=== PATIENT | male | born 1955 | race Caucasian/White ===

== ENCOUNTER 2024-09-05 20:42 | Observation (INO) ==
--- NOTE | 2024-09-05 22:30 | CT ---
EXAM:BRAIN W/O CONHISTORY:FALL; EMS states he fell this morning and was found later by neighbors. He cc of rib pain bilateral and rt ankle painCOMPARISON:Report only from December 25, 2021TECHNIQUE:Axial non-contrast images of the head were obtained with coronal and sagittal reformats provided.Radiation dose: 935.94 mGy-cm total DLPFINDINGS:No abnormal areas of acute attenuation in the brain parenchyma.Restrepo-white differentiation remains intact.No intracranial, extra-axial, fluid collection.No hemorrhage.Periventricular chronic microvascular disease.No mass, mass effect or midline shift.Age related brain parenchymal global atrophy.No ventriculomegaly.No acute fracture.Sinuses are well aerated.Mastoid air cells are well aerated.Globes and intra-orbital contents are unremarkable.IMPRESSION:No acute intracranial abnormality identified.THIS IS AN ELECTRONICALLY VERIFIED FINAL [id number]/05/2024 10:27 PM - Electronically signed by Jared Akhtar MD
--- NOTE | 2024-09-05 22:36 | CT ---
EXAM:CHEST W/O CONHISTORY:FALL; EMS states he fell this morning and was found later by neighbors. He cc of rib pain bilateral and rt ankle painCOMPARISON:None.TECHNIQUE:Nonenhance d spiral CT imaging was performed through the chest and axial, coronal, and sagittal CT images were generated.FINDINGS:There is atherosclerosis in the left main, lad, circumflex, and RCA. Main pulmonary artery is normal in caliber. Ascending aorta is ectatic at 3.5 cm. There is no pathologic adenopathy. There is some mucus in the airways. The lungs are grossly clear without effusion or pneumothorax. The upper abdominal structures are unremarkable. There are age-indeterminate compression fractures at T8, T10, and T11. There is degeneration in both shoulders and in the thoracic spine. No acute rib fracture is identified. There are some older healed right-sided rib fractures.IMPRESSION:1. Age-indeterminate T8, T10, T11 compression fractures.2. Mucus in the airways but lungs grossly clear.THIS IS AN ELECTRONICALLY VERIFIED FINAL [id number]/05/2024 10:33 PM - Electronically signed by Contreras Gaxiola MD
--- NOTE | 2024-09-05 23:45 | RAD ---
EXAM:FOOT, RIGHTHISTORY:EMS states he fell this morning and was found later by neighbors. He cc of rib pain bilateral and rt ankle pain; FALLCOMPARISON:None availableTECHNIQUE:Right foot radiographs, 3 views, AP, oblique and lateral projectionsFINDINGS:No fracture or dislocations.Moderate degenerative changes in the intertarsal bones of the midfoot.Soft tissues are unremarkable.Moderate partially unattached plantar calcaneal spur.IMPRESSION:No acute osseous abnormality.THIS IS AN ELECTRONICALLY VERIFIED FINAL [id number]/05/2024 11:42 PM - Electronically signed by Jared Akhtar MD
--- NOTE | 2024-09-05 23:46 | RAD ---
EXAM:ANKLE, RIGHTHISTORY:EMS states he fell this morning and was found later by neighbors. He cc of rib pain bilateral and rt ankle pain; FALLCOMPARISON:No relevant prior studies available.TECHNIQUE:Right ankle radiographs, 3 views, AP, oblique and lateral projectionsFINDINGS:No fracture or dislocations.Moderate degenerative changes in the intertarsal bones in the midfoot.Partially detached moderate plantar calcaneal spurring.Diffuse soft tissue edema.Normal tibiofibular interval.IMPRESSION:No acute osseous abnormality.THIS IS AN ELECTRONICALLY VERIFIED FINAL [id number]/05/2024 11:43 PM - Electronically signed by Jared Akhtar MD
[2024-09-06] MEDS: DUONEB 0.5 MG/3 MG (3 mL) NEB ONE (01:52)
[2024-09-06 02:08] LABS: BASOPHILS # (AUTO) 0.2 X10^3/uL (0.0-0.1); BASOPHILS % (AUTO) 1.1 % (0.2-1.0); EOSINOPHILS # (AUTO) 0.1 x10^3/uL (0.0-0.2); EOSINOPHILS % (AUTO) 0.8 % (0.9-2.9); HEMATOCRIT 40.1 % (42.0-54.0); HEMOGLOBIN 13.6 g/dL (13.5-18.0); LYMPHOCYTES # (AUTO) 2.1 X10^3/uL (1.3-2.9); LYMPHOCYTES % (AUTO) 12.9 % (21.0-51.0); MEAN CORPUSCULAR HEMOGLOBIN 30.3 pg (27.0-34.0); MEAN CORPUSCULAR HGB CONC 33.8 g/dL (33.0-35.0); MEAN CORPUSCULAR VOLUME 89.8 fL (80.0-100.0); MEAN PLATELET VOLUME 7.4 fL (7.4-11.0); MONOCYTES # (AUTO) 1.8 x10^3/uL (0.3-0.8); MONOCYTES % (AUTO) 11.5 % (0.0-13.0); NEUTROPHILS # (AUTO) 11.8 x10^3/uL (2.2-4.8); NEUTROPHILS % (AUTO) 73.7 % (42.0-75.0); PLATELET COUNT 244 X10^3/uL (150.0-450.0); RED BLOOD COUNT 4.47 X10^6/uL (4.7-6.0); RED CELL DISTRIBUTION WIDTH 15.6 % (11.6-16.5)
[2024-09-06 02:20] LABS: ALANINE AMINOTRANSFERASE 12 Units/L (12-78); ALBUMIN 2.6 g/dL (3.4-5.0); ALKALINE PHOSPHATASE 66 Units/L (46-116); ASPARTATE AMINO TRANSFERASE 19 Units/L (15-37); BLOOD UREA NITROGEN 25 mg/dL (7-18); CALCIUM 8.8 mg/dL (8.5-10.1); CARBON DIOXIDE 26.9 mmol/L (21-32); CHLORIDE 93 mmol/L (98-107); COR CA(FOR HYPOALB) 9.9 mg/dL (8.5-10.1); CREATINE KINASE 253 Units/L (39-308); GLUCOSE 62 mg/dL (65-99); LIPASE 14 Units/L (16-77); SODIUM 132 mmol/L (136-145); TOTAL PROTEIN 6.6 g/dL (6.4-8.2); eGFR NON BLACK RACES 29 (>60)
--- NOTE | 2024-09-06 02:50 | DR.EXTPAIN ---
HPI Time seen Time Seen by Provider: 09/05/24 21:42 HPI Comment HPI Comment: According to pt they were called by the neighbours early this evening after patient did not answer when they called .pt was found on the floor with face down .not knowing how long he had been there .Pt complained of pain over the ribs ,right ankle and foot .Pt was given dilaudid by EMS due to pain and brought to ER for evaluation Complaint/Symptoms Chief Complaint Doctor Comments: found on the floor Chief Complaint:: EMS states he fell this morning and was found later by neighbors. He cc of rib pain bilateral and rt ankle pain. COVID-19 Coronavirus risk:travel/contact w/high risk person: No Has patient experienced Coronavirus symptoms: No Nurses notes reviewed Nurses Notes Review: Yes Source History Provided: Patient and EMS Mode of arrival Mode of Arrival: EMS Timing Onset of Chief Complaint: 09/05/24 Context History of: Arthritis PMH PMH Past Medical History: Yes Past Medical History: COPD and Hypertension Past Surgical History: Yes Surgical History: Tonsillectomy and Other Family History History of Family Medical Conditions: Yes Family Medical History: Diabetes Mellitus, [place], Coronary Artery Disease and Hypertension Social History Alcohol Use: None Do you use any recreational Drugs:: No Lives With: Alone Lives Where: Home Travel Risk Coronavirus risk:travel/contact w/high risk person: No Has patient experienced Coronavirus symptoms: No Infectious screening In the last 2 months have you had wt loss of >10#?: NO Have you had fever, night sweats or hemotysis?: No Have you traveled outside the country in the last 6 months?: No Isolation: Standard ROS Review of Systems Constitutional: Malaise and Fatigue Eyes: No Symptoms Reported ENTM: No Symptoms Reported Respiratoy: Non-Productive Cough and Short of Breath Cardiovascular: No Symptoms Reported Gastrointestinal/Abdominal: No Symptoms Reported Genitourinary: No Symptoms Reported Neurological: No Symptoms Reported Musculoskeletal: See HPI Integumentary: No Symptoms Reported Hematologic/Lymphatic: No Symptoms Reported Endocrine: No Symptoms Reported PE Vital Signs Vitals: Vital Signs Temperature 99.4 F Pulse Rate [Left Radial] 100 Pulse Rate [Left Radial] 102 Pulse Rate 102 Pulse Rate 124 Respiratory Rate 20 Respiratory Rate 20 Respiratory Rate 18 Blood Pressure [Left Arm] 109/58 Blood Pressure [Left Arm] 122/59 Blood Pressure 111/64 O2 Sat by Pulse Oximetry 95 O2 Sat by Pulse Oximetry 98 O2 Sat by Pulse Oximetry 97 O2 Sat by Pulse Oximetry 80 General Limitations: No Limitations General Appearance: Alert and Lethargic Head Head Exam: Normal Inspection, Atraumatic, Normocephalic and Other (dry scaly and erythematous nasolabial folds as well as eyebrows ) ENT ENT Exam: Normal Exam and Mucous Membranes Dry Neck Neck Exam: Normal Inspection and Full ROM Chest Chest Inspection: Normal Inspection and Symmetric Chest Wall Rise Respiratory Respiratory Exam: Prolonged Expiratory Phase Cardiovascular Cardiovascular Exam: +S1 and +S2 Abdominal Exam Abdominal Exam: Normal Bowel Sounds, Soft, Tenderness and Hernia (over the parumbilical area ) Extremities Extremities Exam: Other (dry skin right ankle and foot painful to touch ) Neurological Neurological Exam: Other (arousable ) Skin Skin Exam: Dry MDM Differential Diagnosis Differential Diagnosis: Other (fall ,head injury rib pain ,right ankle and foot pain ,paraumbilical hernia painful,dyponea ,copd ,dehydrated ) COURSE Treatment Treatment: CT head ,ct chest ,labs ,ct abdomen and pelvis ,ddimer ROR Labs Reviewed Laboratory Results Reviewed?: Yes 09/06/24 01:50 09/06/24 01:50 Laboratory: WBC 16.0 X10^3/uL (3.6-10.0) H 09/06/24 01:50 RBC 4.47 X10^6/uL (4.7-6.0) L 09/06/24 01:50 Hgb 13.6 g/dL (13.5-18.0) 09/06/24 01:50 Hct 40.1 % (42.0-54.0) L 09/06/24 01:50 MCV 89.8 fL (80.0-100.0) 09/06/24 01:50 MCH 30.3 pg (27.0-34.0) 09/06/24 01:50 MCHC 33.8 g/dL (33.0-35.0) 09/06/24 01:50 RDW 15.6 % (11.6-16.5) 09/06/24 01:50 Plt Count 244 X10^3/uL (150.0-450.0) 09/06/24 01:50 MPV 7.4 fL (7.4-11.0) 09/06/24 01:50 Neut % (Auto) 73.7 % (42.0-75.0) 09/06/24 01:50 Lymph % (Auto) 12.9 % (21.0-51.0) L 09/06/24 01:50 [place] % (Auto) 11.5 % (0.0-13.0) 09/06/24 01:50 Eos % (Auto) 0.8 % (0.9-2.9) L 09/06/24 01:50 Baso % (Auto) 1.1 % (0.2-1.0) H 09/06/24 01:50 Neut # (Auto) 11.8 x10^3/uL (2.2-4.8) H 09/06/24 01:50 Lymph # (Auto) 2.1 X10^3/uL (1.3-2.9) 09/06/24 01:50 [place] # (Auto) 1.8 x10^3/uL (0.3-0.8) H 09/06/24 01:50 Eos # (Auto) 0.1 x10^3/uL (0.0-0.2) 09/06/24 01:50 Baso # (Auto) 0.2 X10^3/uL (0.0-0.1) H 09/06/24 01:50 Absolute Nucleated RBC 0.1 /100WBC 09/06/24 01:50 D-Dimer 1.64 ug/ml (0.0-0.57) H 09/06/24 01:50 Sodium 132 mmol/L (136-145) L 09/06/24 01:50 Corrected Sodium TNP 09/06/24 01:50 Potassium 4.0 mmol/L (3.5-5.1) 09/06/24 01:50 Chloride 93 mmol/L (98-107) L 09/06/24 01:50 Carbon Dioxide 26.9 mmol/L (21-32) 09/06/24 01:50 BUN 25 mg/dL (7-18) H 09/06/24 01:50 Creatinine 2.40 mg/dL (0.70-1.30) H 09/06/24 01:50 Est GFR (MDRD) Af Amer 35 (>60) L 09/06/24 01:50 Est GFR (MDRD) Non-Af 29 (>60) L 09/06/24 01:50 Glucose 62 mg/dL (65-99) L 09/06/24 01:50 Calcium 8.8 mg/dL (8.5-10.1) 09/06/24 01:50 Corrected Calcium 9.9 mg/dL (8.5-10.1) 09/06/24 01:50 Total Bilirubin 1.80 mg/dL (0.2-1.0) H 09/06/24 01:50 Direct Bilirubin 0.80 mg/dL (0-0.2) H 09/06/24 01:50 AST 19 Units/L (15-37) 09/06/24 01:50 ALT 12 Units/L (12-78) 09/06/24 01:50 Alkaline Phosphatase 66 Units/L (46-116) 09/06/24 01:50 Creatine Kinase 253 Units/L (39-308) 09/06/24 01:50 Total Protein 6.6 g/dL (6.4-8.2) 09/06/24 01:50 Albumin 2.6 g/dL (3.4-5.0) L 09/06/24 01:50 Globulin 4.0 g/dL (2.5-4.5) 09/06/24 01:50 Albumin/Globulin Ratio 0.7 Ratio (1.1-2.1) L 09/06/24 01:50 Lipase 14 Units/L (16-77) L 09/06/24 01:50 Opioid Opioid Risk Tool Age (Edwar box if 16-45): No History of Preadolescent Sexual Abuse: No Total: 0 Total Score Risk Category: Low Risk Copyright: Joseph ALVARENGA predicting aberrant behaviors Discharge Plan Diagnosis Discharge Problem: Acute renal failure, D-dimer, elevated, Hernia of anterior abdominal wall, Leukocytosis, Acute dehydration Discharge Plan Patient Disposition: HOME, SELF-CARE Condition: Stable Prescriptions: Continued albuterol sulfate 2.5 mg /3 mL (0.083 %) Solution For Nebulization 2.5 mg inhalation QID PRN (Reason: Shortness Of Breath) Discontinued furosemide 40 mg tablet 40 mg PO DAILY Patient Comments: Take ONE (1) Tablet by mouth ONE (1) Time Each Day 30-DAY SUPPLY hydrocodone-acetaminophen 7.5-325 mg tablet 7.5 tab PO BID Patient Comments: Take ONE (1) Tablet by mouth TWO (2) Times Each Day 30-DAY SUPPLY albuterol sulfate 90 mcg/actuation Hfa Aerosol Inhaler 2 puff INHALATION Q4H PRN (Reason: Shortness Of Breath) lisinopril 40 mg tablet 40 mg PO DAILY Patient Comments: Take ONE (1) Tablet by mouth ONE (1) Time Each Day 30-DAY SUPPLY celecoxib 200 mg capsule 200 mg PO BID prednisone 20 mg tablet 20 mg PO QDAY allopurinol 300 mg tablet 300 mg PO QDAY Health Concerns: Post Hospitalization: new medications and changes needed to prevent readmission or further decline. Pt educated and given instructions on all concerns. Plan of Treatment: Continue with present treatment and follow up plan. Pt is to keep follow up appointment as instructed and take medications as ordered. Orders to Discharge Patient Discharge Orders: Transfer (Routine); Ordered 09/06/24 Ordered By: Florentino Cooper Follow ups/Referrals Follow ups/Referrals: [facility],None [Primary Care Provider] - 3 days Instructions Stand Alone Forms: Post Hospital Follow Up Care ADDITIONAL NOTES Additional Notes Additional Notes: wbc 16,dimer elevated ,blood sugar 62,gfr 29,ct abdomen and pelvis anterior abdominal wall hernia containing omentum with inflammatory chnages .spoek with Dr Ware.Agreed to admit for acute renal failure,elevated dimer copd ,possible incarcerated hernia dehydration .spoke with surgery for consult
--- NOTE | 2024-09-06 03:37 | CT ---
CT ABDOMEN AND PELVIS WITHOUT CONTRASTHISTORY:RUQ PAIN, PERIUMBILICAL HERNIA;COMPARISON:NoneTECHNIQUE:Axial images were obtained of the abdomen and pelvis without IV contrast. Sagittal and coronal reformatted images were provided. All images were reviewed in a variety of windows and levels.RADIATION REDUCTION TECHNIQUE: Automated exposure control, adjustment of the mA or kV according to patient size, or iterative reconstruction techniques were used.FINDINGS:Please note that lack of IV contrast does limit evaluation of the soft tissues and vascular detail.The visualized lower lung zones are clear. The heart size is within normal limits. There is no evidence of a pericardial effusion.The liver, spleen, pancreas, adrenal glands, and kidneys are grossly unremarkable. The gallbladder is grossly unremarkable.Bilateral nonobstructing nephrolithiasis is noted. There is an anterior abdominal hernia containing omentum with inflammatory changes. This potentially could represent an incarcerated hernia. Please clinically correlate with symptoms. Surgical consultation may be obtained as clinically indicated. Mild fusiform prominence of the infrarenal abdominal aorta with calcification is seen measuring 27 mm in diameter.The stomach, small bowel, and colon are grossly unremarkable. A few scattered diverticula are seen without evidence of diverticulitis. There are no inflammatory changes in the right lower quadrant to suggest secondary signs of acute appendicitis. Partial visualization of the appendix is normal. The appendix is not seen in its entirety on this examination.There is no evidence of retroperitoneal or mesenteric lymphadenopathy.The visualized bones demonstrate degenerative changes. There are no concerning lytic or blastic lesions identified.IMPRESSION:1. There is an anterior abdominal hernia containing omentum with inflammatory changes. This potentially could represent an incarcerated hernia. Please clinically correlate with symptoms. Surgical consultation may be obtained as clinically indicated.2. Bilateral nonobstructing nephrolithiasis is noted.THIS IS AN ELECTRONICALLY VERIFIED FINAL [id number]/06/2024 3:34 AM - Electronically signed by Renny Schmitz MD
[2024-09-06] MEDS: NS 1,000 ML IV 1,000 ML IV ONE ×2 (04:45→10:02)
[2024-09-06 04:57] LABS: BILIRUBIN,URINE 1+ (NEGATIVE); BLOOD/HEMOGLOBIN,URINE 3+ (NEGATIVE); GLUCOSE, URINE NEGATIVE (NEGATIVE); KETONES,URINE 1+ (NEGATIVE); LEUKOCYTE ESTERASE ,URINE 1+ (NEGATIVE); NITRITES,URINE NEGATIVE (NEGATIVE); PROTEIN,URINE 2+ (NEGATIVE); UROBILINOGEN,URINE 2+ (NORMAL)
[2024-09-06] MEDS: DILAUDID INJ IVP ONE (04:57)
[2024-09-06 05:03] LABS: APPEARANCE,URINE CLEAR (CLEAR); COLOR,URINE AMBER (YELLOW)
[2024-09-06 05:04] LABS: BACTERIA,URINE TRACE /HPF (NEGATIVE); HYALINE CASTS, URINE FEW /LPF (NEGATIVE); SQUAMOUS EPITHELIAL CELL,UR RARE /HPF (NEGATIVE)
[2024-09-06 05:20] LABS: ALANINE AMINOTRANSFERASE 10 Units/L (12-78); ALBUMIN 2.7 g/dL (3.4-5.0); ALKALINE PHOSPHATASE 69 Units/L (46-116); ASPARTATE AMINO TRANSFERASE 20 Units/L (15-37); BLOOD UREA NITROGEN 26 mg/dL (7-18); CALCIUM 8.8 mg/dL (8.5-10.1); CARBON DIOXIDE 25.9 mmol/L (21-32); CHLORIDE 92 mmol/L (98-107); COR CA(FOR HYPOALB) 9.8 mg/dL (8.5-10.1); CREATININE 2.31 mg/dL (0.70-1.30); GLUCOSE 70 mg/dL (65-99); POTASSIUM 4.1 mmol/L (3.5-5.1); SODIUM 132 mmol/L (136-145); TOTAL PROTEIN 6.8 g/dL (6.4-8.2); eGFR NON BLACK RACES 30 (>60)
[2024-09-06] MEDS ORDERED: PROVENTIL NEB TX 0.083% 2.5MG/ 3ML NEB PRN ×2 (05:20→05:25)
[2024-09-06] MEDS: LOVENOX INJ 30 MG SYR SC SCH (08:16)
[2024-09-06] MEDS: DILAUDID INJ ONE (10:02)
--- NOTE | 2024-09-06 11:15 | DR.H&P ---
H&P History & Physical for Day of: H&P Date: 09/06/24 Chief Complaint Chief Complaint: fall History of Present Illness History of Present Illness: Mr Dao is a 68y/o male with a PMH of COPD, HTN presented after being on the floor for an unknown time. He was found by his neighbors on the floor with face down. Patient complained of rib pain and was brought to the ER for further evaluation. ER work up showed elevated WBC and BUN/Cr. CT-brain was negative. CTAP showed abdominal hernia with possible incarceration. CT-chest showed mucus plugging along with age-indeterminate T8, T10, T11 compression fractures. Patient's d-dimer was elevated but CTA-chest could not be done due to poor renal function. Patient was started on hydration and pain control. He was admitted for further management. Dr Mcpherson was also consulted for abdominal hernia. During rounds, patient states his knees had been bothering him for a while and his right knee gave out and he fell on the floor. He is cough and wheezing on exam. He is not able to tell which medicines he takes. He is asking for water. He denied N/V/D or abdominal pain. Labs/imaging reviewed: -WBC 16 Hgb 13.6 Na:132 K 4.1 BUN/Cr 26/2.31 D-dimer 1.64 -UA neg -CT-brain, chest and XR reviewed Plan: will admit to med-surg. Wean O2 as tolerated. Continue hydration, replace electrolytes as per protocol. Venous US ordered. Will start Cefepime and solumedrol. Nebs prn. Continue pain control. Follow surgery recommendations. PT/OT as tolerated. Monitor AM labs/imaging. Time spent for clinical assessment, reviewing labs/imaging, physical exam, documentation and decision making greater than 45 mins. Past Medical History Past Medical History: COPD and Hypertension Past Surgical History Surgical History: Abdominal Surgery and Other Family History Family Medical History: Diabetes Mellitus, [place], Coronary Artery Disease and Hypertension Social History Does patient currently use any type of tobacco product: Yes Type of Tobacco Use: Cigarettes How many years tobacco product used: 60 Alcohol Use: Occasionally Drug Use: None Medications Home Medications: Home Medications Medication Instructions Recorded Confirmed Type albuterol sulfate 2.5 mg/3 mL 2.5 mg inhalation QID PRN 11/02/19 09/05/24 History (0.083 %) solution for nebulization Shortness Of Breath Allergies Allergies Allergy/AdvReac Type Severity Reaction Status Date / Time Penicillins Allergy Verified 09/05/24 23:25 Labs 09/06/24 01:50 09/06/24 05:00 Labs: Laboratory WBC 16.0 X10^3/uL (3.6-10.0) H 09/06/24 01:50 RBC 4.47 X10^6/uL (4.7-6.0) L 09/06/24 01:50 Hgb 13.6 g/dL (13.5-18.0) 09/06/24 01:50 Hct 40.1 % (42.0-54.0) L 09/06/24 01:50 MCV 89.8 fL (80.0-100.0) 09/06/24 01:50 MCH 30.3 pg (27.0-34.0) 09/06/24 01:50 MCHC 33.8 g/dL (33.0-35.0) 09/06/24 01:50 RDW 15.6 % (11.6-16.5) 09/06/24 01:50 Plt Count 244 X10^3/uL (150.0-450.0) 09/06/24 01:50 MPV 7.4 fL (7.4-11.0) 09/06/24 01:50 Neut % (Auto) 73.7 % (42.0-75.0) 09/06/24 01:50 Lymph % (Auto) 12.9 % (21.0-51.0) L 09/06/24 01:50 [place] % (Auto) 11.5 % (0.0-13.0) 09/06/24 01:50 Eos % (Auto) 0.8 % (0.9-2.9) L 09/06/24 01:50 Baso % (Auto) 1.1 % (0.2-1.0) H 09/06/24 01:50 Neut # (Auto) 11.8 x10^3/uL (2.2-4.8) H 09/06/24 01:50 Lymph # (Auto) 2.1 X10^3/uL (1.3-2.9) 09/06/24 01:50 [place] # (Auto) 1.8 x10^3/uL (0.3-0.8) H 09/06/24 01:50 Eos # (Auto) 0.1 x10^3/uL (0.0-0.2) 09/06/24 01:50 Baso # (Auto) 0.2 X10^3/uL (0.0-0.1) H 09/06/24 01:50 Absolute Nucleated RBC 0.1 /100WBC 09/06/24 01:50 D-Dimer 1.64 ug/ml (0.0-0.57) H 09/06/24 01:50 Sodium 132 mmol/L (136-145) L 09/06/24 05:00 Corrected Sodium TNP 09/06/24 05:00 Potassium 4.1 mmol/L (3.5-5.1) 09/06/24 05:00 Chloride 92 mmol/L (98-107) L 09/06/24 05:00 Carbon Dioxide 25.9 mmol/L (21-32) 09/06/24 05:00 BUN 26 mg/dL (7-18) H 09/06/24 05:00 Creatinine 2.31 mg/dL (0.70-1.30) H 09/06/24 05:00 Est GFR (MDRD) Af Amer 36 (>60) L 09/06/24 05:00 Est GFR (MDRD) Non-Af 30 (>60) L 09/06/24 05:00 Glucose 70 mg/dL (65-99) 09/06/24 05:00 Calcium 8.8 mg/dL (8.5-10.1) 09/06/24 05:00 Corrected Calcium 9.8 mg/dL (8.5-10.1) 09/06/24 05:00 Total Bilirubin 2.10 mg/dL (0.2-1.0) H 09/06/24 05:00 Direct Bilirubin 0.80 mg/dL (0-0.2) H 09/06/24 01:50 AST 20 Units/L (15-37) 09/06/24 05:00 ALT 10 Units/L (12-78) L 09/06/24 05:00 Alkaline Phosphatase 69 Units/L (46-116) 09/06/24 05:00 Creatine Kinase 253 Units/L (39-308) 09/06/24 01:50 Total Protein 6.8 g/dL (6.4-8.2) 09/06/24 05:00 Albumin 2.7 g/dL (3.4-5.0) L 09/06/24 05:00 Globulin 4.1 g/dL (2.5-4.5) 09/06/24 05:00 Albumin/Globulin Ratio 0.7 Ratio (1.1-2.1) L 09/06/24 05:00 Lipase 14 Units/L (16-77) L 09/06/24 01:50 Specimen Type Catherized urine 09/06/24 04:30 Urine Color Eliz (YELLOW) 09/06/24 04:30 Urine Appearance Clear (CLEAR) 09/06/24 04:30 Urine pH 6.0 (5.0 - 8.0) 09/06/24 04:30 Ur Specific [place] 1.025 (1.000-1.030) 09/06/24 04:30 Urine Protein 2+ (NEGATIVE) 09/06/24 04:30 Urine Glucose (UA) Negative (NEGATIVE) 09/06/24 04:30 Urine Ketones 1+ (NEGATIVE) 09/06/24 04:30 Urine Blood 3+ (NEGATIVE) 09/06/24 04:30 Urine Nitrite Negative (NEGATIVE) 09/06/24 04:30 Urine Bilirubin 1+ (NEGATIVE) 09/06/24 04:30 Urine Urobilinogen 2+ (NORMAL) 09/06/24 04:30 Ur Leukocyte Esterase 1+ (NEGATIVE) 09/06/24 04:30 Urine RBC 3-5 /HPF (0-3) A 09/06/24 04:30 Urine WBC 0-2 /HPF (0-5) 09/06/24 04:30 Ur Squamous Epith Cells Rare /HPF (NEGATIVE) 09/06/24 04:30 Urine Bacteria Trace /HPF (NEGATIVE) 09/06/24 04:30 Hyaline Casts Few /LPF (NEGATIVE) 09/06/24 04:30 Ur Culture Indicated? No/not indicated 09/06/24 04:30 Review of Systems Constitutional: Weakness Eyes: No Symptoms Reported ENT: No Symptoms Reported Respiratory: Cough, Shortness of Breath and Wheezing Cardiovascular: No Symptoms Reported Gastrointestinal: No Symptoms Reported Genitourinary: Incontinence Musculoskeletal: Other (rib pain) Skin: No Symptoms Reported Neurological: No Symptoms Reported Physical Exam Vital Signs: Vital Signs Temperature 97.4 F Temperature 98.3 F Pulse Rate [Left Radial] 97 Pulse Rate [Left Radial] 98 Pulse Rate [Left Radial] 100 Pulse Rate [Left Radial] 102 Respiratory Rate 19 Respiratory Rate 20 Respiratory Rate 20 Respiratory Rate 20 Respiratory Rate 20 Blood Pressure [Right Arm] 119/59 Blood Pressure [Right Arm] 98/67 Blood Pressure [Left Arm] 109/58 Blood Pressure [Left Arm] 122/59 O2 Sat by Pulse Oximetry 98 O2 Sat by Pulse Oximetry 95 O2 Sat by Pulse Oximetry 98 Oriented: Normal Throat: Dry Respiratory: Rhonchi Throughout and Wheezes Throughout Cardiovascular: Edema Auscultation: Bowel Sounds: Normal Palpation: Normal Tenderness: Normal and Other (abdominal hernia noted, non-tender ) Skin: Decreased Turgur Musculoskeletal: Leg and Back:Thoracic Psychiatric: Anxiety Mood Description: Anxious Affect: Normal Speech Pattern: Clear and Appropriate Assessment/Plan (1) COPD exacerbation: Status: Acute (2) Acute renal failure: Qualifiers: Acute renal failure type: unspecified Qualified Code(s): N17.9 - Acute kidney failure, unspecified Status: Acute (3) D-dimer, elevated: Status: Acute (4) Hernia of anterior abdominal wall: Status: Acute (5) Acute dehydration: Status: Acute (6) Thoracic compression fracture: Qualifiers: Thoracic vertebra fracture level: T8 Fracture healing: with routine healing Encounter type: subsequent encounter Qualified Code(s): S22.060D - Wedge compression fracture of T7-T8 vertebra, subsequent encounter for fracture with routine healing Status: Acute Review H&P Reviewed: Yes Patient was examined?: Yes
[2024-09-06] MEDS: SOLU-Medrol 40 MG VIAL IVP SCH (11:32)
[2024-09-06] MEDS: MAXIPIME VIAL 1 GRAM 1 G in NS 50 ML IV 50 ML IV SCH (11:32)
[2024-09-06] MEDS: NS 1,000 ML IV 1,000 ML IV SCH (11:32)
[2024-09-06] MEDS: DILAUDID INJ IVP PRN (12:01)
--- NOTE | 2024-09-06 15:20 | DR.CONSULT ---
CONSULT Consultation for Day of: Date: 09/06/24 Chief Complaint Chief Complaint: Patient found at his home on the floor. He had fallen and could not get up. Denies loss of consciousness. Unsure how long he was down. Presents with rib pain and evaluated the emergency room. CT scans of everything showed normal head CT normal chest CT, he does have incarcerated aubrey-umbilical hernia with just fat involved. I was consulted to evaluate the hernia. He is awake and alert. Allergies Allergies Allergy/AdvReac Type Severity Reaction Status Date / Time Penicillins Allergy Verified 09/05/24 23:25 History of Present Illness History of Present Illness: as above Past Medical History Past Medical History: COPD and Hypertension Past Surgical History Surgical History: Abdominal Surgery and Other Family History Family Medical History: Diabetes Mellitus, [place], Coronary Artery Disease and Hypertension Social History Does patient currently use any type of tobacco product: Yes Type of Tobacco Use: Cigarettes How many years tobacco product used: 60 Alcohol Use: Occasionally Drug Use: None Medications Home Medications: Penicillins Allergy (Verified 09/05/24 23:25) Review of Systems Constitutional: See HPI Eyes: No Symptoms Reported ENT: No Symptoms Reported Respiratory: No Symptoms Reported Cardiovascular: No Symptoms Reported Gastrointestinal: No Symptoms Reported Genitourinary: No Symptoms Reported Musculoskeletal: No Symptoms Reported Skin: Other (history of multiple skin cancers removed in the past.) Physical Exam Vital Signs: Vital Signs Temperature 98.3 F Temperature 97.4 F Temperature 98.3 F Pulse Rate [Left Radial] 92 Pulse Rate [Left Radial] 97 Pulse Rate [Left Radial] 98 Respiratory Rate 20 Respiratory Rate 18 Respiratory Rate 19 Respiratory Rate 20 Blood Pressure [Right Arm] 109/58 Blood Pressure [Right Arm] 119/59 Blood Pressure [Right Arm] 98/67 O2 Sat by Pulse Oximetry 98 O2 Sat by Pulse Oximetry 98 Oriented: Normal, Time, Person and Place Eyes: Normal Ear: Normal Nose: Normal Throat: Normal Respiratory: Clear Throughout Cardiovascular: Normal : Normal Palpation: Other (palpable , non -reduceable, non- tender supra-umbilical hernia ) Tenderness: Normal Skin: Other (crusting wound over nose ) Musculoskeletal: Normal (but generally weak) Psychiatric: Normal Mood Description: Calm and Anxious Affect: Anxious Speech Pattern: Clear Plan (1) COPD exacerbation: Status: Acute (2) Acute renal failure: Status: Acute Qualifiers: Acute renal failure type: unspecified Qualified Code(s): N17.9 - Acute kidney failure, unspecified (3) D-dimer, elevated: Status: Acute (4) Hernia of anterior abdominal wall: Status: Acute Plan: Chronic , will recommend elective repair after all current problems resolved (5) Acute dehydration: Status: Acute (6) Thoracic compression fracture: Status: Acute Qualifiers: Encounter type: subsequent encounter Thoracic vertebra fracture level: T8 Fracture healing: with routine healing Qualified Code(s): S22.060D - Wedge compression fracture of T7-T8 vertebra, subsequent encounter for fracture with routine healing
[2024-09-06] MEDS: PROVENTIL NEB TX 0.083% 2.5MG/ 3ML IN PRN (19:49)
[2024-09-07] MEDS: VISTARIL PO PRN (02:45)
--- NOTE | 2024-09-07 10:03 | PCM.PROG ---
Progress Note Progress Note for Day of Date of Exam: 09/07/24 Subjective Subjective: Patient seen at bedside, no acute events overnight. Patient is sitting up in the recliner. Daughter also present at bedside. She reports patient has a hx of COPD and CHF. He has been sick for the past week. He did refuse labs this morning. He is currently admitted for COPD exacerbation, fall and LE edema. He was also noted to have abdominal hernia, Dr Mcpherson saw the patient. No surgical intervention recommended at this time. Patient denies N/V/D or abdominal pain. Labs/imaging: -09/07/24 labs pending -Venous US pending Plan: follow pending lab results. Reconcile home medications. Continue IV Cefepime and solumedrol. Continue nebs prn. Will decrease fluids to 75cc/hr. Replace electrolytes as per protocol. Follow Venous US. Keep legs elevated. PT/OT as tolerated. Monitor AM labs/imaging. Past Medical Family Social History Allergies: Allergies Penicillins Allergy (Verified 09/05/24 23:25) Vital Signs and I&O's Vital Signs: Vital Signs Temperature 97.6 F Pulse Rate [Left Radial] 84 Respiratory Rate 21 Blood Pressure [Right Arm] 138/74 O2 Sat by Pulse Oximetry 97 Intake and Output: Intake & Output 09/04/24 09/05/24 09/06/24 09/07/24 23:59 23:59 23:59 23:59 Intake Total 1261 / 1261 1555 / 1555 Output Total 1060 / 1060 720 / 720 Balance 201 / 201 835 / 835 Physical Exam Oriented: Normal Eyes: Normal Ear: Normal Nose: Normal Throat: Normal Respiratory: Generalized, Wheezes and Rhonchi Cardiovascular: Normal and Edema Auscultation: Bowel Sounds: Normal Palpation: Normal Tenderness: Normal Skin: Other (crusting wound over nose ) Musculoskeletal: Normal (but generally weak) Psychiatric: Normal Mood Description: Calm Affect: Normal Speech Pattern: Clear and Appropriate Laboratory and Diagnostics 09/06/24 01:50 09/06/24 05:00 Labs: Laboratory WBC 16.0 X10^3/uL (3.6-10.0) H 09/06/24 01:50 RBC 4.47 X10^6/uL (4.7-6.0) L 09/06/24 01:50 Hgb 13.6 g/dL (13.5-18.0) 09/06/24 01:50 Hct 40.1 % (42.0-54.0) L 09/06/24 01:50 MCV 89.8 fL (80.0-100.0) 09/06/24 01:50 MCH 30.3 pg (27.0-34.0) 09/06/24 01:50 MCHC 33.8 g/dL (33.0-35.0) 09/06/24 01:50 RDW 15.6 % (11.6-16.5) 09/06/24 01:50 Plt Count 244 X10^3/uL (150.0-450.0) 09/06/24 01:50 MPV 7.4 fL (7.4-11.0) 09/06/24 01:50 Neut % (Auto) 73.7 % (42.0-75.0) 09/06/24 01:50 Lymph % (Auto) 12.9 % (21.0-51.0) L 09/06/24 01:50 [place] % (Auto) 11.5 % (0.0-13.0) 09/06/24 01:50 Eos % (Auto) 0.8 % (0.9-2.9) L 09/06/24 01:50 Baso % (Auto) 1.1 % (0.2-1.0) H 09/06/24 01:50 Neut # (Auto) 11.8 x10^3/uL (2.2-4.8) H 09/06/24 01:50 Lymph # (Auto) 2.1 X10^3/uL (1.3-2.9) 09/06/24 01:50 [place] # (Auto) 1.8 x10^3/uL (0.3-0.8) H 09/06/24 01:50 Eos # (Auto) 0.1 x10^3/uL (0.0-0.2) 09/06/24 01:50 Baso # (Auto) 0.2 X10^3/uL (0.0-0.1) H 09/06/24 01:50 Absolute Nucleated RBC 0.1 /100WBC 09/06/24 01:50 D-Dimer 1.64 ug/ml (0.0-0.57) H 09/06/24 01:50 Sodium 132 mmol/L (136-145) L 09/06/24 05:00 Corrected Sodium TNP 09/06/24 05:00 Potassium 4.1 mmol/L (3.5-5.1) 09/06/24 05:00 Chloride 92 mmol/L (98-107) L 09/06/24 05:00 Carbon Dioxide 25.9 mmol/L (21-32) 09/06/24 05:00 BUN 26 mg/dL (7-18) H 09/06/24 05:00 Creatinine 2.31 mg/dL (0.70-1.30) H 09/06/24 05:00 Est GFR (MDRD) Af Amer 36 (>60) L 09/06/24 05:00 Est GFR (MDRD) Non-Af 30 (>60) L 09/06/24 05:00 Glucose 70 mg/dL (65-99) 09/06/24 05:00 Calcium 8.8 mg/dL (8.5-10.1) 09/06/24 05:00 Corrected Calcium 9.8 mg/dL (8.5-10.1) 09/06/24 05:00 Total Bilirubin 2.10 mg/dL (0.2-1.0) H 09/06/24 05:00 Direct Bilirubin 0.80 mg/dL (0-0.2) H 09/06/24 01:50 AST 20 Units/L (15-37) 09/06/24 05:00 ALT 10 Units/L (12-78) L 09/06/24 05:00 Alkaline Phosphatase 69 Units/L (46-116) 09/06/24 05:00 Creatine Kinase 253 Units/L (39-308) 09/06/24 01:50 Total Protein 6.8 g/dL (6.4-8.2) 09/06/24 05:00 Albumin 2.7 g/dL (3.4-5.0) L 09/06/24 05:00 Globulin 4.1 g/dL (2.5-4.5) 09/06/24 05:00 Albumin/Globulin Ratio 0.7 Ratio (1.1-2.1) L 09/06/24 05:00 Lipase 14 Units/L (16-77) L 09/06/24 01:50 Specimen Type Catherized urine 09/06/24 04:30 Urine Color Eliz (YELLOW) 09/06/24 04:30 Urine Appearance Clear (CLEAR) 09/06/24 04:30 Urine pH 6.0 (5.0 - 8.0) 09/06/24 04:30 Ur Specific [place] 1.025 (1.000-1.030) 09/06/24 04:30 Urine Protein 2+ (NEGATIVE) 09/06/24 04:30 Urine Glucose (UA) Negative (NEGATIVE) 09/06/24 04:30 Urine Ketones 1+ (NEGATIVE) 09/06/24 04:30 Urine Blood 3+ (NEGATIVE) 09/06/24 04:30 Urine Nitrite Negative (NEGATIVE) 09/06/24 04:30 Urine Bilirubin 1+ (NEGATIVE) 09/06/24 04:30 Urine Urobilinogen 2+ (NORMAL) 09/06/24 04:30 Ur Leukocyte Esterase 1+ (NEGATIVE) 09/06/24 04:30 Urine RBC 3-5 /HPF (0-3) A 09/06/24 04:30 Urine WBC 0-2 /HPF (0-5) 09/06/24 04:30 Ur Squamous Epith Cells Rare /HPF (NEGATIVE) 09/06/24 04:30 Urine Bacteria Trace /HPF (NEGATIVE) 09/06/24 04:30 Hyaline Casts Few /LPF (NEGATIVE) 09/06/24 04:30 Ur Culture Indicated? No/not indicated 09/06/24 04:30 Plan (1) COPD exacerbation: Status: Acute (2) Acute renal failure: Status: Acute Qualifiers: Acute renal failure type: unspecified Qualified Code(s): N17.9 - Acute kidney failure, unspecified (3) D-dimer, elevated: Status: Acute (4) Hernia of anterior abdominal wall: Status: Acute (5) Acute dehydration: Status: Acute (6) Thoracic compression fracture: Status: Acute Qualifiers: Encounter type: subsequent encounter Fracture healing: with routine healing Thoracic vertebra fracture level: T8 Qualified Code(s): S22.060D - Wedge compression fracture of T7-T8 vertebra, subsequent encounter for fracture with routine healing
[2024-09-07 10:06] LABS: BASOPHILS # (AUTO) 0.3 X10^3/uL (0.0-0.1); BASOPHILS % (AUTO) 1.8 % (0.2-1.0); HEMATOCRIT 37.2 % (42.0-54.0); HEMOGLOBIN 12.6 g/dL (13.5-18.0); LYMPHOCYTES # (AUTO) 0.5 X10^3/uL (1.3-2.9); LYMPHOCYTES % (AUTO) 3.3 % (21.0-51.0); MEAN CORPUSCULAR HEMOGLOBIN 30.2 pg (27.0-34.0); MEAN CORPUSCULAR HGB CONC 33.9 g/dL (33.0-35.0); MEAN CORPUSCULAR VOLUME 88.9 fL (80.0-100.0); MEAN PLATELET VOLUME 8.1 fL (7.4-11.0); MONOCYTES # (AUTO) 0.6 x10^3/uL (0.3-0.8); MONOCYTES % (AUTO) 3.5 % (0.0-13.0); NEUTROPHILS # (AUTO) 14.3 x10^3/uL (2.2-4.8); NEUTROPHILS % (AUTO) 91.4 % (42.0-75.0); PLATELET COUNT 248 X10^3/uL (150.0-450.0); RED BLOOD COUNT 4.18 X10^6/uL (4.7-6.0); RED CELL DISTRIBUTION WIDTH 15.8 % (11.6-16.5); WHITE BLOOD COUNT 15.7 X10^3/uL (3.6-10.0)
[2024-09-07 10:19] LABS: ALANINE AMINOTRANSFERASE 18 Units/L (12-78); ALBUMIN 2.6 g/dL (3.4-5.0); ALKALINE PHOSPHATASE 72 Units/L (46-116); ASPARTATE AMINO TRANSFERASE 76 Units/L (15-37); BLOOD UREA NITROGEN 21 mg/dL (7-18); CALCIUM 8.9 mg/dL (8.5-10.1); CARBON DIOXIDE 25.1 mmol/L (21-32); CHLORIDE 99 mmol/L (98-107); COR NA(FOR HYPERGLY) 136 mmol/L (136-145); CREATININE 1.14 mg/dL (0.70-1.30); GLUCOSE 145 mg/dL (65-99); MAGNESIUM 1.3 mg/dL (2.0-2.9); SODIUM 135 mmol/L (136-145); TOTAL PROTEIN 7.2 g/dL (6.4-8.2); eGFR NON BLACK RACES > 60 (>60)
[2024-09-07 10:28] VITALS: BMI 31.5
[2024-09-07 10:37] LABS: BAND NEUTROPHILS % 1 % (0-10); PLATELET MORPHOLOGY COMMENT NORMAL (NORMAL)
--- NOTE | 2024-09-07 11:10 | NOTE.SOAP ---
Soap Note Note for Day of Date of Exam: 09/07/24 Subjective Data Subjective Data: patient improved no abdominal pain Objective Data Temperature: 97.6 F Pulse Rate: 84 Respiratory Rate: 21 Objective Data: Cannot reduce periumbilical hernia , not tender , Cr=1.2 Assessment Assessment: Improving with hydration Plan Plan: I will sign off. make hoim a f/u appointment with me at discharge . Will plan elective laparoscopic ventral henia repair.
--- NOTE | 2024-09-07 12:25 | VAS ---
EXAM:[facility] Bilateral lower extremity DVT ultrasound examination with Doppler imaging.HISTORY:b/l le edema, elevated d-dimer; KYLEE LE EDEMA, ELEVATED D- DIMER . Evaluate for evidence for DVT.Bilateral lower extremity pain and swelling.COMPARISON:: NoneTECHNIQUE:Ultrasound of the deep venous vasculature of the bilateral lower extremities was performed. Color and spectral doppler imaging was utilized for the purposes of this examination as well.FINDINGS:The deep veins of both lower extremities are normal in size and configuration. No intraluminal filling defects are seen on grayscale or color flow imaging.The veins compress normally. Doppler waveforms are normal at rest and with augmentation.There is a 6 x 4 cm Gaxiola's cyst seen within the right popliteal fossa.IMPRESSION:Negative bilateral lower extremity DVT ultrasound exam(s).THIS IS AN ELECTRONICALLY VERIFIED FINAL [id number]/07/2024 12:21 PM - Electronically signed by Olman Odom MD
[2024-09-07] MEDS: NICOTINE PATCH TD SCH (14:45)
[2024-09-07] MEDS: NS 1,000 ML IV 1,000 ML with MAGNESIUM SULFATE 50% INJ VIAL 2 G IV SCH (14:46)
[2024-09-07] MEDS ORDERED: OMNIPAQUE 350 mg/mL 100 mL BTL 100 ML ONE (15:52)
--- NOTE | 2024-09-07 16:49 | CT ---
EXAM: CTA CHEST WITH INTRAVENOUS CONTRASTHISTORY: Elevated D-dimer. Shortness of breath.TECHNIQUE: Spiral axial CT images are obtained through the chest with the administration of intravenous contrast. Coronal, sagittal and 3D MIP images are reformatted.DOSIMETRY: Total DLP 529.68 mGycm; CTDI 64.18 mGyCOMPARISON: Noncontrast chest CT dated September 05, 2024FINDINGS:CARDIOVASCULAR: There are intravascular filling defects/PE involving the right upper lobe lobar and anterior segmental and subsegmental pulmonary arteries (overall small clot burden). Axial image 41-68, series 4; coronal image 46-68, series 7; sagittal image 117-138. There is aortic atherosclerosis marked by calcified mural plaques, with approximately 4 cm fusiform ascending thoracic aortic aneurysm; no dissection or rupture. No gross central pulmonary embolic lesion, saddle embolism, or right ventricular failure seen. There is severe coronary artery atherosclerosis (especially the LAD and left circumflex coronary artery). The heart size is within normal limits. No pericardial effusion is seen.MEDIASTINUM AND CHELE: No mass lesion, lymphadenopathy, emphysema, or abnormal fluid collection is seen. There is interval appearance of up to 1 cm circumferential thickening of the gastroesophageal junction and distal esophagus, which may represent a collapsed hiatal hernia with reflux esophagitis in the appropriate clinical setting; neoplastic disease not excluded. Axial image 119-138.LUNGS: There is no acute parenchymal infiltrate, lung nodule, or endobronchial obstructing lesion seen. No pleural effusion or pneumothorax is evident.CHEST WALL: There are no chest wall lesions seen. No axillary lymphadenopathy is noted.BONES AND JOINTS: There are chronic appearing mild to moderate anterior wedge compression fractures of the T8, T10, and T11 vertebral bodies. T12-L3: Severe multilevel DDD marked by severe disc space narrowing send prominent posterior disc bulge/marginal osteophyte complexes with potential for nerve root impingements.UPPER ABDOMEN: Limited views through the upper abdomen demonstrate no gross acute abnormality. There is a partially imaged dilated/elongated gallbladder; nonspecific finding which may represent sequela of NPO status; consider follow-up evaluation with ultrasound and/or HIDA scan to rule out acute gallbladder disease if clinically warranted.IMPRESSION:1. Intravascular filling defects/PE involving the right upper lobe lobar and anterior segmental and subsegmental pulmonary arteries (overall small clot burden). Axial image 41-68, series 4; coronal image 46-68, series 7; sagittal image 117-138.2. No gross central pulmonary embolic lesion, saddle embolism, or right ventricular failure seen.3. Aortic atherosclerosis marked by calcified mural plaques, with approximately 4 cm fusiform ascending thoracic aortic aneurysm; no dissection or rupture.4. Severe coronary artery atherosclerosis (especially the LAD and left circumflex coronary artery).5. No evidence for pulmonary infarction, parenchymal infiltrate, pleural effusion, endobronchial obstructing lesion or pneumothorax seen.6. No suspicious mass or lymphadenopathy is seen.THIS IS AN ELECTRONICALLY VERIFIED FINAL [id number]/07/2024 4:45 PM - Electronically signed by Jonas Roblero MD
[2024-09-07] MEDS: ELIQUIS PO SCH (17:14)
[2024-09-08 06:25] LABS: BASOPHILS # (AUTO) 0.1 X10^3/uL (0.0-0.1); BASOPHILS % (AUTO) 0.4 % (0.2-1.0); EOSINOPHILS % (AUTO) 0.1 % (0.9-2.9); HEMATOCRIT 33.6 % (42.0-54.0); HEMOGLOBIN 11.5 g/dL (13.5-18.0); LYMPHOCYTES # (AUTO) 0.5 X10^3/uL (1.3-2.9); LYMPHOCYTES % (AUTO) 3.8 % (21.0-51.0); MEAN CORPUSCULAR HGB CONC 34.3 g/dL (33.0-35.0); MEAN CORPUSCULAR VOLUME 87.6 fL (80.0-100.0); MEAN PLATELET VOLUME 8.3 fL (7.4-11.0); MONOCYTES # (AUTO) 0.5 x10^3/uL (0.3-0.8); MONOCYTES % (AUTO) 3.8 % (0.0-13.0); NEUTROPHILS # (AUTO) 12.5 x10^3/uL (2.2-4.8); NEUTROPHILS % (AUTO) 91.9 % (42.0-75.0); PLATELET COUNT 289 X10^3/uL (150.0-450.0); RED BLOOD COUNT 3.84 X10^6/uL (4.7-6.0); RED CELL DISTRIBUTION WIDTH 15.9 % (11.6-16.5); WHITE BLOOD COUNT 13.6 X10^3/uL (3.6-10.0)
[2024-09-08 06:42] LABS: ALANINE AMINOTRANSFERASE 22 Units/L (12-78); ALBUMIN 2.5 g/dL (3.4-5.0); ALKALINE PHOSPHATASE 65 Units/L (46-116); ASPARTATE AMINO TRANSFERASE 54 Units/L (15-37); BLOOD UREA NITROGEN 20 mg/dL (7-18); CALCIUM 9.1 mg/dL (8.5-10.1); CARBON DIOXIDE 27.2 mmol/L (21-32); CHLORIDE 103 mmol/L (98-107); COR CA(FOR HYPOALB) 10.3 mg/dL (8.5-10.1); COR NA(FOR HYPERGLY) 139 mmol/L (136-145); CREATININE 0.91 mg/dL (0.70-1.30); GLUCOSE 113 mg/dL (65-99); MAGNESIUM 2.1 mg/dL (2.0-2.9); SODIUM 139 mmol/L (136-145); TOTAL PROTEIN 6.7 g/dL (6.4-8.2); eGFR NON BLACK RACES > 60 (>60)
[2024-09-08 06:43] LABS: BAND NEUTROPHILS % 3 % (0-10); PLATELET MORPHOLOGY COMMENT NORMAL (NORMAL)
[2024-09-08] MEDS: SYNTHROID 25 mcg TAB PO SCH (09:16)
[2024-09-08] MEDS: ZYLOPRIM PO SCH (09:16)
[2024-09-08] MEDS: NS 1,000 ML IV 1,000 ML with MAGNESIUM SULFATE 50% INJ VIAL 1 G IV SCH (10:13)
[2024-09-09 05:24] LABS: HEMOGLOBIN 10.5 g/dL (13.5-18.0); LYMPHOCYTES # (AUTO) 0.4 X10^3/uL (1.3-2.9); MONOCYTES # (AUTO) 0.4 x10^3/uL (0.3-0.8)
[2024-09-09 05:31] LABS: BASOPHILS % (AUTO) 0.2 % (0.2-1.0); HEMATOCRIT 30.5 % (42.0-54.0); LYMPHOCYTES % (AUTO) 4.3 % (21.0-51.0); MEAN CORPUSCULAR HEMOGLOBIN 30.4 pg (27.0-34.0); MEAN CORPUSCULAR HGB CONC 34.4 g/dL (33.0-35.0); MEAN CORPUSCULAR VOLUME 88.4 fL (80.0-100.0); MEAN PLATELET VOLUME 8.2 fL (7.4-11.0); MONOCYTES % (AUTO) 4.1 % (0.0-13.0); NEUTROPHILS % (AUTO) 91.4 % (42.0-75.0); PLATELET COUNT 304 X10^3/uL (150.0-450.0); RED BLOOD COUNT 3.45 X10^6/uL (4.7-6.0); RED CELL DISTRIBUTION WIDTH 15.6 % (11.6-16.5); WHITE BLOOD COUNT 8.7 X10^3/uL (3.6-10.0)
[2024-09-09 05:39] LABS: ALANINE AMINOTRANSFERASE 19 Units/L (12-78); ALBUMIN 2.2 g/dL (3.4-5.0); ALKALINE PHOSPHATASE 53 Units/L (46-116); ASPARTATE AMINO TRANSFERASE 27 Units/L (15-37); BLOOD UREA NITROGEN 23 mg/dL (7-18); CALCIUM 8.6 mg/dL (8.5-10.1); CARBON DIOXIDE 26.5 mmol/L (21-32); CHLORIDE 109 mmol/L (98-107); COR NA(FOR HYPERGLY) 145 mmol/L (136-145); CREATININE 0.91 mg/dL (0.70-1.30); GLUCOSE 125 mg/dL (65-99); POTASSIUM 3.7 mmol/L (3.5-5.1); SODIUM 144 mmol/L (136-145); TOTAL PROTEIN 5.8 g/dL (6.4-8.2); eGFR NON BLACK RACES > 60 (>60)
[2024-09-09 06:04] LABS: PLATELET MORPHOLOGY COMMENT NORMAL (NORMAL)
[2024-09-09] MEDS ORDERED: CONSULT PHARMACY - POTASSIUM & MAGNESIUM XX SCH (07:00)
[2024-09-09] MEDS: K-DUR TAB 20 MEQ PO SCH (09:16)
--- NOTE | 2024-09-09 09:57 | PCM.PROG ---
Progress Note Progress Note for Day of Date of Exam: 09/08/24 Subjective Subjective: Patient seen at bedside, no acute events overnight. Patient is doing better. His cough and breathing have improved, remains on room air. CTPE did show PE and patient was started on Eliquis. Discussed results with patient and daughter. Labs/imaging reviewed: - Hgb 11.5 Creatinine 0.91 -Venous US neg -CTPE: PE noted, small clot burden Plan: Continue IV Cefepime and solumedrol. Continue nebs prn. Continue Eliquis, monitor for bleeding. Replace electrolytes as per protocol. Remove reyes after bladder training. PT/OT as tolerated. Possible discharge today if able to remove reyes. Monitor labs/imaging. Past Medical Family Social History Allergies: Allergies Penicillins Allergy (Verified 09/05/24 23:25) Vital Signs and I&O's Vital Signs: Vital Signs Temperature 97.5 F Pulse Rate [Left Radial] 73 Respiratory Rate 20 Blood Pressure [Right Arm] 167/87 O2 Sat by Pulse Oximetry 96 Intake and Output: Intake & Output 09/06/24 09/07/24 09/08/24 09/09/24 23:59 23:59 23:59 23:59 Intake Total 1261 / 1261 1755 / 1755 1412 / 1412 Output Total 1060 / 1060 1020 / 1020 250 / 250 Balance 201 / 201 735 / 735 1162 / 1162 Physical Exam Oriented: Normal Eyes: Normal Ear: Normal Nose: Normal Throat: Normal Respiratory: Generalized and Diminished Cardiovascular: Normal and Edema Auscultation: Bowel Sounds: Normal Tenderness: Normal Skin: Other (crusting wound over nose ) Musculoskeletal: Normal (but generally weak) Psychiatric: Normal Mood Description: Calm Affect: Normal Speech Pattern: Clear and Appropriate Laboratory and Diagnostics 09/09/24 04:53 09/09/24 04:53 Labs: Laboratory WBC 8.7 X10^3/uL (3.6-10.0) 09/09/24 04:53 RBC 3.45 X10^6/uL (4.7-6.0) L 09/09/24 04:53 Hgb 10.5 g/dL (13.5-18.0) L 09/09/24 04:53 Hct 30.5 % (42.0-54.0) L 09/09/24 04:53 MCV 88.4 fL (80.0-100.0) 09/09/24 04:53 MCH 30.4 pg (27.0-34.0) 09/09/24 04:53 MCHC 34.4 g/dL (33.0-35.0) 09/09/24 04:53 RDW 15.6 % (11.6-16.5) 09/09/24 04:53 Plt Count 304 X10^3/uL (150.0-450.0) 09/09/24 04:53 Plt Count Comment Adequate (ADEQUATE) 09/09/24 04:53 MPV 8.2 fL (7.4-11.0) 09/09/24 04:53 Neut % (Auto) 91.4 % (42.0-75.0) H 09/09/24 04:53 Lymph % (Auto) 4.3 % (21.0-51.0) L 09/09/24 04:53 [place] % (Auto) 4.1 % (0.0-13.0) 09/09/24 04:53 Eos % (Auto) 0.0 % (0.9-2.9) L 09/09/24 04:53 Baso % (Auto) 0.2 % (0.2-1.0) 09/09/24 04:53 Neut # (Auto) 8.0 x10^3/uL (2.2-4.8) H 09/09/24 04:53 Lymph # (Auto) 0.4 X10^3/uL (1.3-2.9) L 09/09/24 04:53 [place] # (Auto) 0.4 x10^3/uL (0.3-0.8) 09/09/24 04:53 Eos # (Auto) 0.0 x10^3/uL (0.0-0.2) 09/09/24 04:53 Baso # (Auto) 0.0 X10^3/uL (0.0-0.1) 09/09/24 04:53 Absolute Nucleated RBC 0.0 /100WBC 09/09/24 04:53 Total Counted 100 09/09/24 04:53 Neutrophils % (Manual) 98 % (39-76) H 09/09/24 04:53 Band Neutrophils % 3 % (0-10) 09/08/24 05:30 Lymphocytes % (Manual) 1 % (13-43) L 09/09/24 04:53 Monocytes % (Manual) 1 % (4-9) L 09/09/24 04:53 Plt Morphology Comment Normal (NORMAL) 09/09/24 04:53 RBC Morphology Normal (NORMAL) 09/09/24 04:53 D-Dimer 1.64 ug/ml (0.0-0.57) H 09/06/24 01:50 Sodium 144 mmol/L (136-145) 09/09/24 04:53 Corrected Sodium 145 mmol/L (136-145) 09/09/24 04:53 Potassium 3.7 mmol/L (3.5-5.1) 09/09/24 04:53 Chloride 109 mmol/L (98-107) H 09/09/24 04:53 Carbon Dioxide 26.5 mmol/L (21-32) 09/09/24 04:53 BUN 23 mg/dL (7-18) H 09/09/24 04:53 Creatinine 0.91 mg/dL (0.70-1.30) 09/09/24 04:53 Est GFR (MDRD) Af Amer > 60 (>60) 09/09/24 04:53 Est GFR (MDRD) Non-Af > 60 (>60) 09/09/24 04:53 Glucose 125 mg/dL (65-99) H 09/09/24 04:53 Calcium 8.6 mg/dL (8.5-10.1) 09/09/24 04:53 Corrected Calcium 10.0 mg/dL (8.5-10.1) 09/09/24 04:53 Magnesium 2.1 mg/dL (2.0-2.9) 09/08/24 05:30 Total Bilirubin 0.30 mg/dL (0.2-1.0) 09/09/24 04:53 Direct Bilirubin 0.80 mg/dL (0-0.2) H 09/06/24 01:50 AST 27 Units/L (15-37) 09/09/24 04:53 ALT 19 Units/L (12-78) 09/09/24 04:53 Alkaline Phosphatase 53 Units/L (46-116) 09/09/24 04:53 Ammonia 11 umol/L (11-32) 09/07/24 14:35 Creatine Kinase 253 Units/L (39-308) 09/06/24 01:50 B-Natriuretic Peptide 244 pg/mL (0-79) H 09/07/24 09:25 Total Protein 5.8 g/dL (6.4-8.2) L 09/09/24 04:53 Albumin 2.2 g/dL (3.4-5.0) L 09/09/24 04:53 Globulin 3.6 g/dL (2.5-4.5) 09/09/24 04:53 Albumin/Globulin Ratio 0.6 Ratio (1.1-2.1) L 09/09/24 04:53 Lipase 14 Units/L (16-77) L 09/06/24 01:50 Specimen Type Catherized urine 09/06/24 04:30 Urine Color [place]iz (YELLOW) 09/06/24 04:30 Urine Appearance Clear (CLEAR) 09/06/24 04:30 Urine pH 6.0 (5.0 - 8.0) 09/06/24 04:30 Ur Specific [place] 1.025 (1.000-1.030) 09/06/24 04:30 Urine Protein 2+ (NEGATIVE) 09/06/24 04:30 Urine Glucose (UA) Negative (NEGATIVE) 09/06/24 04:30 Urine Ketones 1+ (NEGATIVE) 09/06/24 04:30 Urine Blood 3+ (NEGATIVE) 09/06/24 04:30 Urine Nitrite Negative (NEGATIVE) 09/06/24 04:30 Urine Bilirubin 1+ (NEGATIVE) 09/06/24 04:30 Urine Urobilinogen 2+ (NORMAL) 09/06/24 04:30 Ur Leukocyte Esterase 1+ (NEGATIVE) 09/06/24 04:30 Urine RBC 3-5 /HPF (0-3) A 09/06/24 04:30 Urine WBC 0-2 /HPF (0-5) 09/06/24 04:30 Ur Squamous Epith Cells Rare /HPF (NEGATIVE) 09/06/24 04:30 Urine Bacteria Trace /HPF (NEGATIVE) 09/06/24 04:30 Hyaline Casts Few /LPF (NEGATIVE) 09/06/24 04:30 Ur Culture Indicated? No/not indicated 09/06/24 04:30 Plan (1) Pulmonary emboli: Status: Acute Qualifiers: Acute cor pulmonale presence: without acute cor pulmonale Chronicity: acute Pulmonary embolism type: other Qualified Code(s): I26.99 - Other pulmonary embolism without acute cor pulmonale (2) COPD exacerbation: Status: Acute (3) Acute renal failure: Status: Acute Qualifiers: Acute renal failure type: unspecified Qualified Code(s): N17.9 - Acute kidney failure, unspecified (4) Hernia of anterior abdominal wall: Status: Acute (5) Acute dehydration: Status: Acute (6) Thoracic compression fracture: Status: Acute Qualifiers: Encounter type: subsequent encounter Fracture healing: with routine healing Thoracic vertebra fracture level: T8 Qualified Code(s): S22.060D - Wedge compression fracture of T7-T8 vertebra, subsequent encounter for fracture with routine healing
[2024-09-09 11:04] VITALS: RESP 19
[2024-09-09 12:46] VITALS: BP 144/72; PULSE 79; TEMP 98.1; O2SAT 96
--- NOTE | 2024-09-10 10:00 | W.DIS.FURT ---
Summary of Discharge Discharge Summary of Date Date of Exam: 09/09/24 Admission Date Date of Admission: 09/05/24 Admission Diagnosis Patient Problems (Updated 09/09/24 @ 09:57 by Noris Brizuela MD) Acute renal failure (Acute) N17.9 D-dimer, elevated (Acute) R79.89 Hernia of anterior abdominal wall (Acute) K43.9 Leukocytosis (Acute) D72.829 Acute dehydration (Acute) E86.0 Hospital Course: Mr Dao is a 68y/o male with a PMH of COPD, HTN presented after being on the floor for an unknown time. He was found by his neighbors on the floor with face down. Patient complained of rib pain and was brought to the ER for further evaluation. ER work up showed elevated WBC and BUN/Cr. CT-brain was negative. CTAP showed abdominal hernia with possible incarceration. CT-chest showed mucus plugging along with age-indeterminate T8, T10, T11 compression fractures. Patient's d-dimer was elevated but CTA-chest could not be done due to poor renal function. Patient was started on hydration and pain control. He was admitted for further management. He was also started on IV antibiotics, steroids and bronchodilators. Dr Mcpherson was also consulted for abdominal hernia. He did not need any surgical intervention at this time. Patient's renal function improved. CTA chest was done which did show pulmonary embolism. Venous ultrasound was negative for DVT. He was started on Eliquis. He remained on room air and was doing well. His labs were monitored daily and electrolytes replaced as needed. He did have Rodriguez catheter placed initially which was removed. Patient was able to ambulate and go to the bathroom. He was stable to be discharged home. He will follow-up with PCP. Vital Signs: Vital Signs (72 hours) 09/07/24 11:10 09/06/24 12:01 09/06/24 12:00 Temperature 97.6 F 98.3 F Pulse Rate 84 Pulse Rate [Left Radial] 92 H Respiratory Rate 21 20 18 Blood Pressure [Left Arm] Blood Pressure [Right Arm] 109/58 O2 Sat by Pulse Oximetry 98 Oxygen Delivery Method Nasal Cannula Oxygen Flow Rate 2 FIO2% 09/06/24 16:00 09/06/24 12:31 09/06/24 19:29 Temperature 97.6 F 97.7 F Pulse Rate Pulse Rate [Left Radial] 87 80 Respiratory Rate 22 22 19 Blood Pressure [Left Arm] Blood Pressure [Right Arm] 115/58 116/65 O2 Sat by Pulse Oximetry 92 L 99 Oxygen Delivery Method Nasal Cannula Nasal Cannula Oxygen Flow Rate 2 2 FIO2% 09/06/24 19:00 09/07/24 01:14 09/06/24 19:50 Temperature Pulse Rate Pulse Rate [Left Radial] Respiratory Rate 21 Blood Pressure [Left Arm] Blood Pressure [Right Arm] O2 Sat by Pulse Oximetry Oxygen Delivery Method Nasal Cannula Nasal Cannula Oxygen Flow Rate 2 3 FIO2% 32 09/06/24 19:50 09/06/24 23:46 09/07/24 01:44 Temperature 98.2 F Pulse Rate 81 Pulse Rate [Left Radial] 87 Respiratory Rate 21 21 Blood Pressure [Left Arm] Blood Pressure [Right Arm] 116/72 O2 Sat by Pulse Oximetry 95 100 Oxygen Delivery Method Nasal Cannula Oxygen Flow Rate 2 FIO2% 09/07/24 07:00 09/07/24 08:00 09/07/24 12:00 Temperature 97.6 F 96.8 F L Pulse Rate Pulse Rate [Left Radial] 84 87 Respiratory Rate 21 20 Blood Pressure [Left Arm] Blood Pressure [Right Arm] 138/74 113/67 O2 Sat by Pulse Oximetry 97 96 Oxygen Delivery Method Nasal Cannula Room Air Room Air Oxygen Flow Rate 2 FIO2% 09/07/24 08:23 09/07/24 19:00 09/07/24 20:00 Temperature 97.7 F Pulse Rate Pulse Rate [Left Radial] 87 Respiratory Rate 20 Blood Pressure [Left Arm] 120/73 Blood Pressure [Right Arm] O2 Sat by Pulse Oximetry 95 Oxygen Delivery Method Room Air Room Air Room Air Oxygen Flow Rate FIO2% 09/08/24 00:00 09/07/24 21:00 09/08/24 04:00 Temperature 98.6 F 97.7 F Pulse Rate Pulse Rate [Left Radial] 84 83 Respiratory Rate 16 22 Blood Pressure [Left Arm] 140/78 Blood Pressure [Right Arm] 117/59 O2 Sat by Pulse Oximetry 95 96 Oxygen Delivery Method Room Air Room Air Room Air Oxygen Flow Rate FIO2% 09/08/24 08:00 09/08/24 08:28 09/08/24 08:28 Temperature 97.7 F Pulse Rate Pulse Rate [Left Radial] 79 Respiratory Rate 20 Blood Pressure [Left Arm] 150/84 Blood Pressure [Right Arm] O2 Sat by Pulse Oximetry 99 93 L Oxygen Delivery Method Room Air Room Air Oxygen Flow Rate FIO2% 09/08/24 07:00 09/08/24 12:00 09/08/24 16:00 Temperature 98.3 F 97.2 F L Pulse Rate Pulse Rate [Left Radial] 83 80 Respiratory Rate 21 18 Blood Pressure [Left Arm] 162/76 145/77 Blood Pressure [Right Arm] O2 Sat by Pulse Oximetry 98 96 Oxygen Delivery Method Room Air Room Air Room Air Oxygen Flow Rate FIO2% 09/08/24 19:00 09/08/24 20:00 09/09/24 00:00 Temperature 97.3 F L 97.5 F L Pulse Rate Pulse Rate [Left Radial] 70 73 Respiratory Rate 18 18 Blood Pressure [Left Arm] Blood Pressure [Right Arm] 166/85 157/79 O2 Sat by Pulse Oximetry 96 97 Oxygen Delivery Method Room Air Room Air Room Air Oxygen Flow Rate FIO2% 09/08/24 21:10 09/09/24 04:00 09/09/24 07:00 Temperature 97.5 F L Pulse Rate Pulse Rate [Left Radial] 73 Respiratory Rate 20 Blood Pressure [Left Arm] Blood Pressure [Right Arm] 167/87 O2 Sat by Pulse Oximetry 96 Oxygen Delivery Method Room Air Room Air Room Air Oxygen Flow Rate FIO2% Labs: Laboratory Last Values WBC 8.7 X10^3/uL (3.6-10.0) 09/09/24 04:53 RBC 3.45 X10^6/uL (4.7-6.0) L 09/09/24 04:53 Hgb 10.5 g/dL (13.5-18.0) L 09/09/24 04:53 Hct 30.5 % (42.0-54.0) L 09/09/24 04:53 MCV 88.4 fL (80.0-100.0) 09/09/24 04:53 MCH 30.4 pg (27.0-34.0) 09/09/24 04:53 MCHC 34.4 g/dL (33.0-35.0) 09/09/24 04:53 RDW 15.6 % (11.6-16.5) 09/09/24 04:53 Plt Count 304 X10^3/uL (150.0-450.0) 09/09/24 04:53 Plt Count Comment Adequate (ADEQUATE) 09/09/24 04:53 MPV 8.2 fL (7.4-11.0) 09/09/24 04:53 Neut % (Auto) 91.4 % (42.0-75.0) H 09/09/24 04:53 Lymph % (Auto) 4.3 % (21.0-51.0) L 09/09/24 04:53 [place] % (Auto) 4.1 % (0.0-13.0) 09/09/24 04:53 Eos % (Auto) 0.0 % (0.9-2.9) L 09/09/24 04:53 Baso % (Auto) 0.2 % (0.2-1.0) 09/09/24 04:53 Neut # (Auto) 8.0 x10^3/uL (2.2-4.8) H 09/09/24 04:53 Lymph # (Auto) 0.4 X10^3/uL (1.3-2.9) L 09/09/24 04:53 [place] # (Auto) 0.4 x10^3/uL (0.3-0.8) 09/09/24 04:53 Eos # (Auto) 0.0 x10^3/uL (0.0-0.2) 09/09/24 04:53 Baso # (Auto) 0.0 X10^3/uL (0.0-0.1) 09/09/24 04:53 Absolute Nucleated RBC 0.0 /100WBC 09/09/24 04:53 Total Counted 100 09/09/24 04:53 Neutrophils % (Manual) 98 % (39-76) H 09/09/24 04:53 Band Neutrophils % 3 % (0-10) 09/08/24 05:30 Lymphocytes % (Manual) 1 % (13-43) L 09/09/24 04:53 Monocytes % (Manual) 1 % (4-9) L 09/09/24 04:53 Plt Morphology Comment Normal (NORMAL) 09/09/24 04:53 RBC Morphology Normal (NORMAL) 09/09/24 04:53 D-Dimer 1.64 ug/ml (0.0-0.57) H 09/06/24 01:50 Sodium 144 mmol/L (136-145) 09/09/24 04:53 Corrected Sodium 145 mmol/L (136-145) 09/09/24 04:53 Potassium 3.7 mmol/L (3.5-5.1) 09/09/24 04:53 Chloride 109 mmol/L (98-107) H 09/09/24 04:53 Carbon Dioxide 26.5 mmol/L (21-32) 09/09/24 04:53 BUN 23 mg/dL (7-18) H 09/09/24 04:53 Creatinine 0.91 mg/dL (0.70-1.30) 09/09/24 04:53 Est GFR (MDRD) Af Amer > 60 (>60) 09/09/24 04:53 Est GFR (MDRD) Non-Af > 60 (>60) 09/09/24 04:53 Glucose 125 mg/dL (65-99) H 09/09/24 04:53 Calcium 8.6 mg/dL (8.5-10.1) 09/09/24 04:53 Corrected Calcium 10.0 mg/dL (8.5-10.1) 09/09/24 04:53 Magnesium 2.1 mg/dL (2.0-2.9) 09/08/24 05:30 Total Bilirubin 0.30 mg/dL (0.2-1.0) 09/09/24 04:53 Direct Bilirubin 0.80 mg/dL (0-0.2) H 09/06/24 01:50 AST 27 Units/L (15-37) 09/09/24 04:53 ALT 19 Units/L (12-78) 09/09/24 04:53 Alkaline Phosphatase 53 Units/L (46-116) 09/09/24 04:53 Ammonia 11 umol/L (11-32) 09/07/24 14:35 Creatine Kinase 253 Units/L (39-308) 09/06/24 01:50 B-Natriuretic Peptide 244 pg/mL (0-79) H 09/07/24 09:25 Total Protein 5.8 g/dL (6.4-8.2) L 09/09/24 04:53 Albumin 2.2 g/dL (3.4-5.0) L 09/09/24 04:53 Globulin 3.6 g/dL (2.5-4.5) 09/09/24 04:53 Albumin/Globulin Ratio 0.6 Ratio (1.1-2.1) L 09/09/24 04:53 Lipase 14 Units/L (16-77) L 09/06/24 01:50 Specimen Type Catherized urine 09/06/24 04:30 Urine Color Eliz (YELLOW) 09/06/24 04:30 Urine Appearance Clear (CLEAR) 09/06/24 04:30 Urine pH 6.0 (5.0 - 8.0) 09/06/24 04:30 Ur Specific [place] 1.025 (1.000-1.030) 09/06/24 04:30 Urine Protein 2+ (NEGATIVE) 09/06/24 04:30 Urine Glucose (UA) Negative (NEGATIVE) 09/06/24 04:30 Urine Ketones 1+ (NEGATIVE) 09/06/24 04:30 Urine Blood 3+ (NEGATIVE) 09/06/24 04:30 Urine Nitrite Negative (NEGATIVE) 09/06/24 04:30 Urine Bilirubin 1+ (NEGATIVE) 09/06/24 04:30 Urine Urobilinogen 2+ (NORMAL) 09/06/24 04:30 Ur Leukocyte Esterase 1+ (NEGATIVE) 09/06/24 04:30 Urine RBC 3-5 /HPF (0-3) A 09/06/24 04:30 Urine WBC 0-2 /HPF (0-5) 09/06/24 04:30 Ur Squamous Epith Cells Rare /HPF (NEGATIVE) 09/06/24 04:30 Urine Bacteria Trace /HPF (NEGATIVE) 09/06/24 04:30 Hyaline Casts Few /LPF (NEGATIVE) 09/06/24 04:30 Ur Culture Indicated? No/not indicated 09/06/24 04:30 Reason For Visit: ACUTE RENAL FAILURE, ELEVETED D DIMER" Discharge Diagnosis All Active Problems (Updated 09/09/24 @ 09:57 by Noris Brizuela MD) Pulmonary emboli (Acute) Thoracic compression fracture (Acute) Bronchitis (Acute) COPD exacerbation (Acute) Laceration of hand, right (Acute) Acute left flank pain (Acute) Constipation (Acute) Kidney stone on left side (Acute) Hypertensive urgency (Acute) Cluster headache (Acute) Back pain (Acute) Acute renal failure (Acute) D-dimer, elevated (Acute) Hernia of anterior abdominal wall (Acute) Leukocytosis (Acute) Acute dehydration (Acute) Plan of Treatment: Continue with present treatment and follow up plan. Pt is to keep follow up appointment as instructed and take medications as ordered. Discharge Medications Discharge Medications: Penicillins Allergy (Verified 09/05/24 23:25) CONTINUE taking the following medications allopurinol 300 mg tablet 300 mg PO QDAY 09/07/24 [History] ergocalciferol (vitamin D2) 1,250 mcg (50,000 unit) capsule (Vitamin D2) 1,250 mcg PO QWEEK 09/07/24 [History] hydrocodone 7.5 mg-acetaminophen 325 mg tablet 1 tab PO TID PRN pain 09/07/24 [History] lactulose 10 gram/15 mL oral solution 15 ml PO TID PRN 09/07/24 [History] levothyroxine 25 mcg tablet 25 mcg PO QAM 09/07/24 [History] New Prescriptions apixaban 5 mg tablet (Eliquis) 5 mg PO BID 30 days #60 tabs 09/09/24 [Rx] cefdinir 300 mg capsule 300 mg PO BID 5 days #10 caps 09/09/24 [Rx] Discharge Disposition Discharge Disposition: To home Discharge Condition: Stable Discharge Plan Discharge Plan Hospital Course: Mr Dao is a 68y/o male with a PMH of COPD, HTN presented after being on the floor for an unknown time. He was found by his neighbors on the floor with face down. Patient complained of rib pain and was brought to the ER for further evaluation. ER work up showed elevated WBC and BUN/Cr. CT-brain was negative. CTAP showed abdominal hernia with possible incarceration. CT-chest showed mucus plugging along with age-indeterminate T8, T10, T11 compression fractures. Patient's d-dimer was elevated but CTA-chest could not be done due to poor renal function. Patient was started on hydration and pain control. He was admitted for further management. He was also started on IV antibiotics, steroids and bronchodilators. Dr Mcpherson was also consulted for abdominal hernia. He did not need any surgical intervention at this time. Patient's renal function improved. CTA chest was done which did show pulmonary embolism. Venous ultrasound was negative for DVT. He was started on Eliquis. He remained on room air and was doing well. His labs were monitored daily and electrolytes replaced as needed. He did have Rodriguez catheter placed initially which was removed. Patient was able to ambulate and go to the bathroom. He was stable to be discharged home. He will follow-up with PCP. Patient Disposition: 01 HOME, SELF-CARE Condition: Stable Health Concerns: Post Hospitalization: new medications and changes needed to prevent readmission or further decline. Pt educated and given instructions on all concerns. Care Plan Goals: Problem: Pain/Alteration in Comfort Goal: Improve/ Resolve Pain; Achieve Pain Tolerance Instructions: Take pain medications as prescribed. Contact your primary care provider if your pain is unrelieved or worsens. Follow up with primary care provider as directed. Plan of Treatment: Continue with present treatment and follow up plan. Pt is to keep follow up appointment as instructed and take medications as ordered. Prescription drug monitoring program results: PDMP reviewed and no concerns identified Prescriptions: New Eliquis 5 mg Tablet 5 mg PO BID 30 Days Qty: 60 0RF Rx Instructions: take 2 tabs twice a day for 5 days and then 1 tab twice a day cefdinir 300 mg capsule 300 mg PO BID 5 Days Qty: 10 0RF Continued levothyroxine 25 mcg tablet 25 mcg PO QAM hydrocodone-acetaminophen 7.5-325 mg tablet 1 tab PO TID PRN (Reason: pain) Rx Instructions: family states , pt does not take this on a regular basis allopurinol 300 mg tablet 300 mg PO QDAY ergocalciferol (vitamin D2) [Vitamin D2] 1,250 mcg (50,000 unit) capsule 1,250 mcg PO QWEEK Rx Instructions: on wednesdays lactulose 10 gram/15 mL solution 15 ml PO TID PRN Discontinued furosemide 40 mg tablet 40 mg PO DAILY Patient Comments: Take ONE (1) Tablet by mouth ONE (1) Time Each Day 30-DAY SUPPLY hydrocodone-acetaminophen 7.5-325 mg tablet 7.5 tab PO BID Patient Comments: Take ONE (1) Tablet by mouth TWO (2) Times Each Day 30-DAY SUPPLY albuterol sulfate 90 mcg/actuation Hfa Aerosol Inhaler 2 puff INHALATION Q4H PRN (Reason: Shortness Of Breath) lisinopril 40 mg tablet 40 mg PO DAILY Patient Comments: Take ONE (1) Tablet by mouth ONE (1) Time Each Day 30-DAY SUPPLY celecoxib 200 mg capsule 200 mg PO BID prednisone 20 mg tablet 20 mg PO QDAY allopurinol 300 mg tablet 300 mg PO QDAY celecoxib 200 mg capsule 200 mg PO BID prednisone 20 mg tablet 20 mg PO QDAY Orders to Discharge Patient Discharge Orders: Discharge (Routine); Ordered 09/09/24 Ordered By: Noris Brizuela Follow ups/Referrals Follow ups/Referrals: Mohsen Ware MD [STAFF PHYSICIAN] - 09/15/24 1:20 pm Instructions Instructions: Acute Kidney Injury, Adult, Back Pain, Adult Stand Alone Forms: Excuse From Work or School, Post Hospital Follow Up Care
== END 2024-09-09 12:30 | disposition home or self-care (01) ==
LOC: MED/SURG 20:42 → ER 20:42 → MED/SURG 09-06 06:31
PROVIDERS: ADMIT Family Medicine; ATTEND Family Medicine
DX: K43.9 Ventral hernia without obstruction or gangrene; R26.89 Other abnormalities of gait and mobility; M25.571 Pain in right ankle and joints of right foot; S22.060D Wedge compression fracture of T7-T8 vertebra, subsequent encounter for fracture with routine healing; R79.89 Other specified abnormal findings of blood chemistry; I26.99 Other pulmonary embolism without acute cor pulmonale; I10 Essential (primary) hypertension; R60.0 Localized edema; N20.0 Calculus of kidney; J44.1 Chronic obstructive pulmonary disease with (acute) exacerbation; R06.02 Shortness of breath; E86.0 Dehydration; W18.39XA Other fall on same level, initial encounter; N17.8 Other acute kidney failure; Z59.86 Financial insecurity

== ENCOUNTER 2025-07-11 11:04 | Observation (INO) ==
--- NOTE | 2025-07-11 11:14 | EKG ---
Test Reason : dyspnea Blood Pressure : */* mmHG Vent. Rate : 59 BPM Atrial Rate : 59 BPM P-R Int : 186 ms QRS Dur : 96 ms QT Int : 406 ms P-R-T Axes : 79 46 57 degrees QTc Int : 401 ms Sinus bradycardia Incomplete right bundle branch block Borderline ECG When compared with ECG of 26-APR-2025 15:07, Vent. rate has decreased BY 43 BPM QRS axis shifted right Minimal criteria for Inferior infarct are no longer present T wave inversion no longer evident in Anterior leads QT has shortened Confirmed by Baron Greenberg MD ([id number]) on 07/12/2025 6:11:31 AM Referred By: Confirmed By: Baron Greenberg MD
[2025-07-11] MEDS: ZOFRAN INJ 4 MG VIAL IVP ONE (11:15)
[2025-07-11] MEDS: MORPHINE SULFATE INJ 2 MG INJ IVP ONE ×2 (11:15→12:24)
[2025-07-11 11:18] LABS: ABG BASE EXCESS 4.7 mmol/L (-2.0-2.0); ABG HCO3 29.2 mmol/L (22-26); ABG OXYGEN SATURATION 90.0 % (90-100); ABG PCO2 42.0 mmHg (35.0-45.0); ABG PH 7.450 (7.35-7.45); ABG PO2 56.0 mmHg (80.0-100.0)
[2025-07-11 11:19] LABS: ABG ALLEN TEST POS
[2025-07-11 11:46] LABS: MEAN PLATELET VOLUME 7.0 fL (7.4-11.0); RED CELL DISTRIBUTION WIDTH 14.6 % (11.6-16.5)
--- NOTE | 2025-07-11 11:47 | DR.SOBA ---
HPI Time Seen Time Seen by Provider: 07/11/25 11:41 Primary Care Physician Primary Care Physician: Dr. Randle HPI Comment HPI Comment: Patient is a poor historian Patient is a 69-year-old male who presents to the ED with complaint of shortness of breath. Patient states that he tripped and fell while walking up the stairs to his camper and landed on his right side. He has right rib pain. States it feels like something is stabbing him in the chest. States his pain is unbearable 08/20. Nonradiating. Has not taken anything for pain. He has a history of CHF but does not know what medicines he is supposed to be taking. He does smoke cigarettes. Denies any fevers, chills, NVD, abdominal pain. Complaints Chief Complaint:: pt states he fell going up the stairs into his camper last night and is having severe right rib pain and shortness of breath COVID-19 Coronavirus risk:travel/contact w/high risk person: No Has patient experienced Coronavirus symptoms: No Source History Provided: Patient Mode of Arrival Mode of Arrival: Wheelchair Timing Onset of Chief Complaint: 07/10/25 PMH PMH Past Medical History: Yes Past Medical History: CHF, COPD and Hypertension Past Surgical History: Yes Surgical History: Abdominal Surgery and Other Family History History of Family Medical Conditions: Yes Family Medical History: Diabetes Mellitus, [place], Coronary Artery Disease and Hypertension Social History Do you use any recreational Drugs:: No Lives With: Spouse Lives Where: Home Travel Risk Coronavirus risk:travel/contact w/high risk person: No Has patient experienced Coronavirus symptoms: No Infectious screening Have you traveled outside the country in the last 6 months?: No Isolation: Standard ROS Review of Systems All Other Systems: Reviewed and Negative PE Vital Signs Vitals: Vital Signs Temperature 97.9 F Pulse Rate 63 Pulse Rate 65 Pulse Rate 63 Pulse Rate 71 Pulse Rate 68 Pulse Rate 70 Pulse Rate 76 Pulse Rate 67 Pulse Rate 67 Pulse Rate 67 Pulse Rate 61 Pulse Rate 57 Pulse Rate 55 Pulse Rate 59 Pulse Rate 59 Pulse Rate 62 Pulse Rate 59 Pulse Rate 59 Pulse Rate 59 Pulse Rate 60 Pulse Rate 59 Respiratory Rate 27 Respiratory Rate 28 Respiratory Rate 22 Respiratory Rate 29 Respiratory Rate 28 Respiratory Rate 28 Respiratory Rate 28 Respiratory Rate 25 Respiratory Rate 26 Respiratory Rate 26 Respiratory Rate 24 Respiratory Rate 24 Respiratory Rate 24 Respiratory Rate 29 Respiratory Rate 30 Respiratory Rate 23 Respiratory Rate 26 Respiratory Rate 29 Respiratory Rate 28 Respiratory Rate 24 Respiratory Rate 26 Blood Pressure 146/68 Blood Pressure 146/68 Blood Pressure 199/86 Blood Pressure 203/99 Blood Pressure 203/99 Blood Pressure 203/99 Blood Pressure 220/99 Blood Pressure 214/98 Blood Pressure 168/78 Blood Pressure 179/103 Blood Pressure 193/86 Blood Pressure 221/105 Blood Pressure 221/105 O2 Sat by Pulse Oximetry 97 O2 Sat by Pulse Oximetry 94 O2 Sat by Pulse Oximetry 94 O2 Sat by Pulse Oximetry 93 O2 Sat by Pulse Oximetry 96 O2 Sat by Pulse Oximetry 95 O2 Sat by Pulse Oximetry 96 O2 Sat by Pulse Oximetry 93 O2 Sat by Pulse Oximetry 98 O2 Sat by Pulse Oximetry 97 O2 Sat by Pulse Oximetry 88 O2 Sat by Pulse Oximetry 87 O2 Sat by Pulse Oximetry 87 O2 Sat by Pulse Oximetry 90 O2 Sat by Pulse Oximetry 92 O2 Sat by Pulse Oximetry 93 O2 Sat by Pulse Oximetry 95 O2 Sat by Pulse Oximetry 93 Other Exam Other Exam: GEN: Lying in bed, shortness of breath appears to be in distress Lungs: CTABL Heart: Regular rate and rhythm Chest: Tender to palpation lower right lateral chest ABD: Diffuse abdominal tenderness CV: 2+ radial Extremities: 2+ pitting edema in the bilateral lower extremities Neuro: AAO x 3 COURSE Treatment Treatment: Cardiac workup performed including CBC, CMP, troponin, BNP, D-dimer, and ABG. Also ordered CT of chest and abdomen pelvis. Patient was given 2 mg IV morphine with improvement in pain and blood pressure. Reevaluation 1st: Improved (Improved with 4mg of morphine. Patient is complaining of epigastric pain radiating downward plus nausea and vomiting. Will obtain CTA, lipase and amylase. Differential diagnosis includes aortic dissection, PE, pancreatitis.) 2nd: Unchanged (CTA did not reveal any pathology. Pt continues to ask for pain management. Due to his uncontrollable pain and his sx of acute on chronic CHF will have pt admitted for medical management. ) ROR Labs Reviewed 07/11/25 11:27 07/11/25 11:27 Laboratory: WBC 11.2 X10^3/uL (3.6-10.0) H 07/11/25 11:27 RBC 4.74 X10^6/uL (4.7-6.0) 07/11/25 11:27 Hgb 14.0 g/dL (13.5-18.0) 07/11/25 11:27 Hct 41.0 % (42.0-54.0) L 07/11/25 11:27 MCV 86.4 fL (80.0-100.0) 07/11/25 11:27 MCH 29.5 pg (27.0-34.0) 07/11/25 11:27 MCHC 34.2 g/dL (33.0-35.0) 07/11/25 11:27 RDW 14.6 % (11.6-16.5) 07/11/25 11:27 Plt Count 417 X10^3/uL (150.0-450.0) 07/11/25 11:27 Plt Count Comment Adequate (ADEQUATE) 07/11/25 11:27 MPV 7.0 fL (7.4-11.0) L 07/11/25 11:27 Neut % (Auto) 66.0 % (42.0-75.0) 07/11/25 11:27 Lymph % (Auto) 22.0 % (21.0-51.0) 07/11/25 11:27 [place] % (Auto) 8.9 % (0.0-13.0) 07/11/25 11:27 Eos % (Auto) 2.3 % (0.9-2.9) 07/11/25 11:27 Baso % (Auto) 0.8 % (0.2-1.0) 07/11/25 11:27 Neut # (Auto) 7.4 x10^3/uL (2.2-4.8) H 07/11/25 11:27 Lymph # (Auto) 2.5 X10^3/uL (1.3-2.9) 07/11/25 11:27 [place] # (Auto) 1.0 x10^3/uL (0.3-0.8) H 07/11/25 11:27 Eos # (Auto) 0.3 x10^3/uL (0.0-0.2) H 07/11/25 11:27 Baso # (Auto) 0.1 X10^3/uL (0.0-0.1) 07/11/25 11:27 Absolute Nucleated RBC 0.0 /100WBC 07/11/25 11:27 Total Counted 100 07/11/25 11:27 Neutrophils % (Manual) 64 % (39-76) 07/11/25 11:27 Lymphocytes % (Manual) 25 % (13-43) 07/11/25 11:27 Monocytes % (Manual) 8 % (4-9) 07/11/25 11:27 Eosinophils % (Manual) 3 % (0-6) 07/11/25 11:27 Plt Morphology Comment Normal (NORMAL) 07/11/25 11:27 RBC Morphology Normal (NORMAL) 07/11/25 11:27 D-Dimer 1.60 ug/ml (0.0-0.57) H 07/11/25 11:27 Sample Site Rrad 07/11/25 11:15 ABG pH 7.450 (7.35-7.45) 07/11/25 11:15 ABG pCO2 42.0 mmHg (35.0-45.0) 07/11/25 11:15 ABG pO2 56.0 mmHg (80.0-100.0) L 07/11/25 11:15 ABG HCO3 29.2 mmol/L (22-26) H 07/11/25 11:15 ABG O2 Saturation 90.0 % (90-100) 07/11/25 11:15 ABG Base Excess 4.7 mmol/L (-2.0-2.0) H 07/11/25 11:15 Alan Test Pos 07/11/25 11:15 A-a Gradient 41.0 mmHg 07/11/25 11:15 FiO2 21.0 07/11/25 11:15 Blood Gas Comments Zi well ms 07/11/25 11:15 Sodium 141 mmol/L (136-145) 07/11/25 11:27 Corrected Sodium TNP 07/11/25 11:27 Potassium 3.5 mmol/L (3.5-5.1) 07/11/25 11:27 Chloride 102 mmol/L (98-107) 07/11/25 11:27 Carbon Dioxide 32.4 mmol/L (21-32) H 07/11/25 11:27 BUN 10 mg/dL (7-18) 07/11/25 11:27 Creatinine 0.87 mg/dL (0.70-1.30) 07/11/25 11:27 Est GFR (MDRD) Af Amer > 60 (>60) 07/11/25 11:27 Est GFR (MDRD) Non-Af > 60 (>60) 07/11/25 11:27 Glucose 81 mg/dL (65-99) 07/11/25 11:27 Calcium 8.5 mg/dL (8.5-10.1) 07/11/25 11:27 Corrected Calcium 9.1 mg/dL (8.5-10.1) 07/11/25 11:27 Total Bilirubin 0.60 mg/dL (0.2-1.0) 07/11/25 11:27 AST 14 Units/L (15-37) L 07/11/25 11:27 ALT 12 Units/L (12-78) 07/11/25 11:27 Alkaline Phosphatase 76 Units/L (46-116) 07/11/25 11:27 Troponin I High Sens 8.3 ng/L (4.0-60.0) 07/11/25 11:27 B-Natriuretic Peptide 391 pg/mL (0-79) H 07/11/25 11:27 Total Protein 6.9 g/dL (6.4-8.2) 07/11/25 11:27 Albumin 3.2 g/dL (3.4-5.0) L 07/11/25 11:27 Globulin 3.7 g/dL (2.5-4.5) 07/11/25 11:27 Albumin/Globulin Ratio 0.9 Ratio (1.1-2.1) L 07/11/25 11:27 Amylase 50 Units/L (25-115) 07/11/25 11:27 Lipase 19 Units/L (16-77) 07/11/25 11:27 Specimen Type Clean catch urine 07/11/25 13:26 Urine Color Pale yellow (YELLOW) 07/11/25 13:26 Urine Appearance Clear (CLEAR) 07/11/25 13:26 Urine pH 6.0 (5.0 - 8.0) 07/11/25 13:26 Ur Specific [place] 1.020 (1.000-1.030) 07/11/25 13:26 Urine Protein Negative (NEGATIVE) 07/11/25 13:26 Urine Glucose (UA) Negative (NEGATIVE) 07/11/25 13:26 Urine Ketones Negative (NEGATIVE) 07/11/25 13:26 Urine Blood Negative (NEGATIVE) 07/11/25 13:26 Urine Nitrite Negative (NEGATIVE) 07/11/25 13:26 Urine Bilirubin Negative (NEGATIVE) 07/11/25 13:26 Urine Urobilinogen Normal (NORMAL) 07/11/25 13:26 Ur Leukocyte Esterase Negative (NEGATIVE) 07/11/25 13:26 Other Results Comments: Name: NORI BOWER : 1955 Sex: M Location: ER Order Number(s): [id number] Procedure(s):CTA, CHEST Ordering Physician: Cooper Solano Primary Care: toma randle Service Date: 07/11/25 Service Time: 1316 EXAM: CT PULMONARY ANGIOGRAM CHEST WITH CONTRAST (PE PROTOCOL) HISTORY: dyspnea, hypoxia, elevated ddimer; COMPARISON: Noncontrast CT from same date; CTA dated 09/07/2024. TECHNIQUE: Axial CT images were obtained through the chest after the intravenous administration of IV contrast. Coronal reformatted images were included. Maximum intensity projection (MIP) images were performed per pulmonary angiogram protocol. Informed written consent was obtained prior to contrast administration. All CT scans at this facility use dose modulation, iterative reconstruction, and/or weight based dosing when appropriate to reduce radiation dose to as low as reasonably achievable. FINDINGS: Satisfactory pulmonary artery opacification. No evidence of pulmonary embolism. Moderate aortic and coronary artery calcifications. Unchanged ectatic 3.9 cm ascending aorta. No pericardial effusion. No thoracic lymphadenopathy. Mild respiratory lung motion. Mild diffuse bronchial wall thickening. No focal consolidation. No pleural effusion or pneumothorax. No acute osseous findings. Osteopenia with multiple chronic compression fractures and multilevel degenerative disc disease. No acute findings in the visualized upper abdomen. IMPRESSION: No acute findings. No evidence of pulmonary embolism. THIS IS AN ELECTRONICALLY VERIFIED FINAL REPORT 07/11/2025 2:16 PM - Electronically signed by Lan Paniagua MD Report Electronically signed: 07/11/25 1419 CC: Cooper Solano EKG Rate: 59 [place]: Normal Rhythm: SB Block: RBBB (incomplete) ST: Normal Opioid Opioid Risk Tool Age ([place]war box if 16-45): No History of Preadolescent Sexual Abuse: No Total: 0 Total Score Risk Category: Low Risk Copyright: Joesph ALVARENGA predicting aberrant behaviors Discharge Plan Diagnosis Discharge Problem: Hypertensive urgency, Acute CHF, Intractable pain Discharge Plan Patient Disposition: 09 ADMITTED INPATIENT Condition: Stable
[2025-07-11 11:53] LABS: COR CA(FOR HYPOALB) 9.1 mg/dL (8.5-10.1); CREATININE 0.87 mg/dL (0.70-1.30); eGFR NON BLACK RACES > 60 (>60)
[2025-07-11 12:10] LABS: PLATELET MORPHOLOGY COMMENT NORMAL (NORMAL)
--- NOTE | 2025-07-11 12:18 | CT ---
EXAM: CT ABDOMEN AND PELVIS WITHOUT CONTRAST HISTORY: ABDOMINAL PAIN / DISTENDED ABDOMEN ; COMPARISON: 04/26/2025. TECHNIQUE: Axial CT images were obtained through the abdomen and pelvis without contrast. Coronal and sagittal reformatted images were included. All CT scans at this facility use dose modulation, iterative reconstruction, and/or weight based dosing when appropriate to reduce radiation dose to as low as reasonably achievable. FINDINGS: Please note that without the use of intravenous contrast, evaluation of organ parenchyma is limited. Moderate thoracic aortic and coronary artery atherosclerotic calcifications. Trachea is midline and central airways are patent. No focal consolidation. No pleural effusion or pneumothorax. Unenhanced liver, gallbladder, spleen, pancreas, and adrenals are unremarkable. No hydronephrosis or perinephric stranding. Nonobstructing left renal calculi measure 3 mm or less. Moderate aortoiliac atherosclerosis with mild ectasia but no significant aneurysm. No abnormally distended or focally thickened bowel loops. Mild colonic stool burden. Scattered colonic diverticula without surrounding inflammation. No free peritoneal air or fluid. Unremarkable urinary bladder. No free pelvic fluid. No acute osseous findings. Chronic L5 pars defects with grade 1 anterolisthesis at L5-S1. [id number] thoracolumbar spondylosis. Multiple chronic appearing thoracic spine compression fractures. Chronic fat containing supraumbilical ventral hernia. IMPRESSION: No acute findings in the abdomen or pelvis. THIS IS AN ELECTRONICALLY VERIFIED FINAL REPORT 07/11/2025 12:15 PM - Electronically signed by Lan Paniagua MD
--- NOTE | 2025-07-11 12:19 | CT ---
EXAMINATION: CHEST W/O CON HISTORY: shortness of breath; COMPARISON: None. TECHNIQUE: Contiguous noncontrast axial CT images of the thorax. Images reviewed in the axial imaging plane with reformatted sagittal and coronal images.The above CT scan was done with automated exposure control and the mA and kV was adjusted to obtain quality images according to patient size. FINDINGS: The lungs are expanded. No focal pulmonary infiltrates or pleural fluid collections. Central airways are patent. Details of the mediastinum/vascular structures are limited since intravenous contrast was not used. Heart size within normal range. Coronary artery calcifications. Slightly enlarged main pulmonary outflow trunk 3.4 cm diameter. Mild fusiform shaped ectasia ascending thoracic aorta 3.9 cm diameter. Arterial vascular calcifications aorta and branch vessels. No pericardial effusion. Multilevel spondylosis. Multiple chronic appearing compression fractures of the thoracic spine. IMPRESSION: No acute pulmonary process seen. Slight enlargement of the main pulmonary outflow trunk. Mild fusiform shaped ectasia ascending thoracic aorta 3.9 cm diameter. Coronary artery calcifications. THIS IS AN ELECTRONICALLY VERIFIED FINAL REPORT 07/11/2025 12:16 PM - Electronically signed by Naomy Yang MD
[2025-07-11] MEDS: LASIX IVP ONE (12:56)
[2025-07-11 13:38] LABS: BLOOD/HEMOGLOBIN,URINE NEGATIVE (NEGATIVE); LEUKOCYTE ESTERASE ,URINE NEGATIVE (NEGATIVE); NITRITES,URINE NEGATIVE (NEGATIVE)
[2025-07-11 13:39] LABS: APPEARANCE,URINE CLEAR (CLEAR)
--- NOTE | 2025-07-11 14:19 | CT ---
EXAM: CT PULMONARY ANGIOGRAM CHEST WITH CONTRAST (PE PROTOCOL) HISTORY: dyspnea, hypoxia, elevated ddimer; COMPARISON: Noncontrast CT from same date; CTA dated 09/07/2024. TECHNIQUE: Axial CT images were obtained through the chest after the intravenous administration of IV contrast. Coronal reformatted images were included. Maximum intensity projection (MIP) images were performed per pulmonary angiogram protocol. Informed written consent was obtained prior to contrast administration. All CT scans at this facility use dose modulation, iterative reconstruction, and/or weight based dosing when appropriate to reduce radiation dose to as low as reasonably achievable. FINDINGS: Satisfactory pulmonary artery opacification. No evidence of pulmonary embolism. Moderate aortic and coronary artery calcifications. Unchanged ectatic 3.9 cm ascending aorta. No pericardial effusion. No thoracic lymphadenopathy. Mild respiratory lung motion. Mild diffuse bronchial wall thickening. No focal consolidation. No pleural effusion or pneumothorax. No acute osseous findings. Osteopenia with multiple chronic compression fractures and multilevel degenerative disc disease. No acute findings in the visualized upper abdomen. IMPRESSION: No acute findings. No evidence of pulmonary embolism. THIS IS AN ELECTRONICALLY VERIFIED FINAL REPORT 07/11/2025 2:16 PM - Electronically signed by Lan Paniagua MD
[2025-07-11] MEDS: ZOFRAN INJ 4 MG VIAL ONE (16:16)
[2025-07-11] MEDS: MORPHINE SULFATE INJ 2 MG INJ ONE (16:16)
[2025-07-11] MEDS: OMNIPAQUE 350 mg/mL 100 mL BTL 100 ML ONE (16:16)
[2025-07-11 16:42] VITALS: BMI 30.4
--- NOTE | 2025-07-11 16:51 | EKG ---
Test Reason : chest pain Blood Pressure : */* mmHG Vent. Rate : 71 BPM Atrial Rate : 71 BPM P-R Int : 176 ms QRS Dur : 98 ms QT Int : 386 ms P-R-T Axes : 68 48 72 degrees QTc Int : 419 ms Normal sinus rhythm Incomplete right bundle branch block Nonspecific ST and T wave abnormality Abnormal ECG When compared with ECG of 11-JUL-2025 11:13, (Unconfirmed) Nonspecific T wave abnormality now evident in Anterior leads Confirmed by Baron Greenberg MD ([id number]) on 07/12/2025 6:10:54 AM Referred By: Confirmed By: Baron Greenberg MD
[2025-07-11] MEDS: DECADRON INJ IVP SCH (17:12)
[2025-07-11] MEDS: DILAUDID INJ IVP PRN (17:13)
[2025-07-11] MEDS: LASIX IVP SCH (20:10)
--- NOTE | 2025-07-11 22:35 | EKG ---
Test Reason : chest pain Blood Pressure : */* mmHG Vent. Rate : 57 BPM Atrial Rate : 57 BPM P-R Int : 180 ms QRS Dur : 96 ms QT Int : 444 ms P-R-T Axes : 49 9 43 degrees QTc Int : 432 ms Sinus bradycardia Incomplete right bundle branch block Nonspecific ST and T wave abnormality Abnormal ECG When compared with ECG of 11-JUL-2025 16:49, (Unconfirmed) Nonspecific T wave abnormality now evident in Lateral leads Confirmed by Baron Greenberg MD ([id number]) on 07/12/2025 6:12:03 AM Referred By: Confirmed By: Baron Greenberg MD
[2025-07-12 05:05] LABS: MEAN PLATELET VOLUME 7.2 fL (7.4-11.0); RED CELL DISTRIBUTION WIDTH 14.7 % (11.6-16.5)
[2025-07-12 05:14] LABS: COR NA(FOR HYPERGLY) 139 mmol/L (136-145); CREATININE 1.02 mg/dL (0.70-1.30); eGFR NON BLACK RACES > 60 (>60)
[2025-07-12] MEDS ORDERED: CONSULT PHARMACY - POTASSIUM & MAGNESIUM XX SCH ×2 (06:00→08:00)
[2025-07-12] MEDS: MAG-OX TAB PO SCH (08:39)
--- NOTE | 2025-07-12 10:04 | RAD ---
EXAMINATION: CHEST, 1 VIEW HISTORY: dyspnea; . COMPARISON STUDY: Chest x-ray 04/26/2025 TECHNIQUE: Single AP view of the chest FINDINGS: Lungs are expanded. Mild cardiac silhouette enlargement. Normal pulmonary vascular pattern. Bones are intact. IMPRESSION: Mild cardiac silhouette enlargement. THIS IS AN ELECTRONICALLY VERIFIED FINAL REPORT 07/12/2025 10:00 AM - Electronically signed by Naomy Yang MD
[2025-07-12] MEDS: APRESOLINE TAB 25 MG PO SCH (10:50)
[2025-07-12] MEDS: MOTRIN TAB 600 MG PO PRN (17:41)
--- NOTE | 2025-07-12 18:12 | DR.H&P ---
H&P History & Physical for Day of: H&P Date: 07/12/25 Chief Complaint Chief Complaint: chest wall pain History of Present Illness History of Present Illness: Patient presented to the ER after falling at home. Right side of his chest hit his camper steps. Reports the left railing was loose and he lost his balance while carrying groceries. Immediately brought to the ER. Workup benign other than 2+ pitting edema of his legs and intractable rib pain. No fractures, pneumothorax, effusions, or hematoma. There is not a rash to his side. This morning, he is ambulating with PT. Breathing easier and not wanting to wear his O2. Legs are less edematous. He is asking to go home today but daughter reports he still did not seem to be at his baseline. He is agreeable to stay an extra day. PMH: COPD, hypertension, prior compression fractures of back, lymphoma, gout. PSH: Skin cancer removal multiple spots of his face and scalp, hernia repair. Social: Lives alone, daily smoker. Daughter is POA. ROS: 12 point ROS negative except as noted above. PE: Elderly male in no acute distress. Wearing O2, hearing intact conversation, bilateral ptosis. Heart regular rate and rhythm. Lungs are diminished but clear. Moving all extremities equally well with appropriate station. No edema of the legs today. Mood and affect are appropriate. Alert and oriented x 4. Past Medical History Past Medical History: CHF, COPD and Hypertension Past Surgical History Surgical History: Abdominal Surgery Family History Family Medical History: Diabetes Mellitus, [place], Coronary Artery Disease and Hypertension Social History Does patient currently use any type of tobacco product: Yes Type of Tobacco Use: Cigarettes How many years tobacco product used: 58 Does any household member use tobacco: No Alcohol Use: None Drug Use: None Medications Home Medications: Home Medications Medication Instructions Recorded Confirmed Type celecoxib 100 mg capsule 100 mg PO BID 04/26/2507/11 History hydralazine 50 mg tablet 50 mg PO TID 04/26/25 History levothyroxine 25 mcg tablet 25 mcg PO QAM 04/26/25 History metoprolol succinate 50 mg 50 mg PO QDAY 04/26/2506/13 History tablet,extended release 24 hr prednisone 20 mg tablet 20 mg PO QDAY 04/26/2507/11 History Allergies Allergies Allergy/AdvReac Type Severity Reaction Status Date / Time Penicillins Allergy Verified 09/05/24 23:25 Labs 07/12/25 04:40 07/12/25 04:40 Labs: Laboratory WBC 8.9 X10^3/uL (3.6-10.0) 07/12/25 04:40 RBC 4.88 X10^6/uL (4.7-6.0) 07/12/25 04:40 Hgb 14.5 g/dL (13.5-18.0) 07/12/25 04:40 Hct 42.3 % (42.0-54.0) 07/12/25 04:40 MCV 86.7 fL (80.0-100.0) 07/12/25 04:40 MCH 29.6 pg (27.0-34.0) 07/12/25 04:40 MCHC 34.2 g/dL (33.0-35.0) 07/12/25 04:40 RDW 14.7 % (11.6-16.5) 07/12/25 04:40 Plt Count 387 X10^3/uL (150.0-450.0) 07/12/25 04:40 Plt Count Comment Adequate (ADEQUATE) 07/11/25 11:27 MPV 7.2 fL (7.4-11.0) L 07/12/25 04:40 Neut % (Auto) 84.3 % (42.0-75.0) H 07/12/25 04:40 Lymph % (Auto) 10.6 % (21.0-51.0) L 07/12/25 04:40 [place] % (Auto) 4.3 % (0.0-13.0) 07/12/25 04:40 Eos % (Auto) 0.1 % (0.9-2.9) L 07/12/25 04:40 Baso % (Auto) 0.7 % (0.2-1.0) 07/12/25 04:40 Neut # (Auto) 7.5 x10^3/uL (2.2-4.8) H 07/12/25 04:40 Lymph # (Auto) 0.9 X10^3/uL (1.3-2.9) L 07/12/25 04:40 [place] # (Auto) 0.4 x10^3/uL (0.3-0.8) 07/12/25 04:40 Eos # (Auto) 0.0 x10^3/uL (0.0-0.2) 07/12/25 04:40 Baso # (Auto) 0.1 X10^3/uL (0.0-0.1) 07/12/25 04:40 Absolute Nucleated RBC 0.1 /100WBC 07/12/25 04:40 Total Counted 100 07/11/25 11:27 Neutrophils % (Manual) 64 % (39-76) 07/11/25 11:27 Lymphocytes % (Manual) 25 % (13-43) 07/11/25 11:27 Monocytes % (Manual) 8 % (4-9) 07/11/25 11:27 Eosinophils % (Manual) 3 % (0-6) 07/11/25 11:27 Plt Morphology Comment Normal (NORMAL) 07/11/25 11:27 RBC Morphology Normal (NORMAL) 07/11/25 11:27 D-Dimer 1.60 ug/ml (0.0-0.57) H 07/11/25 11:27 Sample Site Rrad 07/11/25 11:15 ABG pH 7.450 (7.35-7.45) 07/11/25 11:15 ABG pCO2 42.0 mmHg (35.0-45.0) 07/11/25 11:15 ABG pO2 56.0 mmHg (80.0-100.0) L 07/11/25 11:15 ABG HCO3 29.2 mmol/L (22-26) H 07/11/25 11:15 ABG O2 Saturation 90.0 % (90-100) 07/11/25 11:15 ABG Base Excess 4.7 mmol/L (-2.0-2.0) H 07/11/25 11:15 Alan Test Pos 07/11/25 11:15 A-a Gradient 41.0 mmHg 07/11/25 11:15 FiO2 21.0 07/11/25 11:15 Blood Gas Comments Zi well ms 07/11/25 11:15 Sodium 138 mmol/L (136-145) 07/12/25 04:40 Corrected Sodium 139 mmol/L (136-145) 07/12/25 04:40 Potassium 4.3 mmol/L (3.5-5.1) 07/12/25 04:40 Chloride 97 mmol/L (98-107) L 07/12/25 04:40 Carbon Dioxide 34.3 mmol/L (21-32) H 07/12/25 04:40 BUN 17 mg/dL (7-18) 07/12/25 04:40 Creatinine 1.02 mg/dL (0.70-1.30) 07/12/25 04:40 Est GFR (MDRD) Af Amer > 60 (>60) 07/12/25 04:40 Est GFR (MDRD) Non-Af > 60 (>60) 07/12/25 04:40 Glucose 121 mg/dL (65-99) H 07/12/25 04:40 Uric Acid 6.9 mg/dL (3.5-7.2) 07/12/25 04:40 Calcium 8.9 mg/dL (8.5-10.1) 07/12/25 04:40 Corrected Calcium TNP 07/12/25 04:40 Magnesium 1.7 mg/dL (2.0-2.9) L 07/12/25 04:40 Total Bilirubin 0.80 mg/dL (0.2-1.0) 07/12/25 04:40 AST 15 Units/L (15-37) 07/12/25 04:40 ALT 13 Units/L (12-78) 07/12/25 04:40 Alkaline Phosphatase 79 Units/L (46-116) 07/12/25 04:40 Creatine Kinase 33 Units/L (39-308) L 07/11/25 23:05 Troponin I High Sens 6.8 ng/L (4.0-60.0) 07/11/25 23:05 B-Natriuretic Peptide 207 pg/mL (0-79) H 07/12/25 04:40 Total Protein 7.5 g/dL (6.4-8.2) 07/12/25 04:40 Albumin 3.4 g/dL (3.4-5.0) 07/12/25 04:40 Globulin 4.1 g/dL (2.5-4.5) 07/12/25 04:40 Albumin/Globulin Ratio 0.8 Ratio (1.1-2.1) L 07/12/25 04:40 Amylase 50 Units/L (25-115) 07/11/25 11:27 Lipase 19 Units/L (16-77) 07/11/25 11:27 Specimen Type Clean catch urine 07/11/25 13:26 Urine Color Pale yellow (YELLOW) 07/11/25 13:26 Urine Appearance Clear (CLEAR) 07/11/25 13:26 Urine pH 6.0 (5.0 - 8.0) 07/11/25 13:26 Ur Specific [place] 1.020 (1.000-1.030) 07/11/25 13:26 Urine Protein Negative (NEGATIVE) 07/11/25 13:26 Urine Glucose (UA) Negative (NEGATIVE) 07/11/25 13:26 Urine Ketones Negative (NEGATIVE) 07/11/25 13:26 Urine Blood Negative (NEGATIVE) 07/11/25 13:26 Urine Nitrite Negative (NEGATIVE) 07/11/25 13:26 Urine Bilirubin Negative (NEGATIVE) 07/11/25 13:26 Urine Urobilinogen Normal (NORMAL) 07/11/25 13:26 Ur Leukocyte Esterase Negative (NEGATIVE) 07/11/25 13:26 Physical Exam Vital Signs: Vital Signs Temperature 97.5 F Pulse Rate [Radial] 57 Respiratory Rate 19 Respiratory Rate 20 Respiratory Rate 18 Blood Pressure [Right Arm] 160/76 O2 Sat by Pulse Oximetry 93 Assessment/Plan (1) Right-sided chest wall pain: Narrative Support Text: Patient appears greatly improved. Still requiring O2. Plan to send home tomorrow. Continue current medications and observation. Status: Acute (2) Volume overload: Qualifiers: Hypervolemia type: other Qualified Code(s): E87.79 - Other fluid overload Status: Acute (3) Simple chronic bronchitis: Status: Acute (4) Essential (primary) hypertension: Status: Acute
[2025-07-12] MEDS ORDERED: DUONEB 0.5 MG/3 MG (3 mL) NEB ONE (19:51)
[2025-07-12] MEDS: DUONEB 0.5 MG/3 MG (3 mL) NEB ONE (20:22)
[2025-07-13 04:59] LABS: MEAN PLATELET VOLUME 7.7 fL (7.4-11.0); RED CELL DISTRIBUTION WIDTH 14.4 % (11.6-16.5)
[2025-07-13 05:06] LABS: COR NA(FOR HYPERGLY) 140 mmol/L (136-145); CREATININE 1.10 mg/dL (0.70-1.30); eGFR NON BLACK RACES > 60 (>60)
[2025-07-13] MEDS: SYNTHROID 25 mcg TAB PO SCH (05:34)
[2025-07-13] MEDS ORDERED: CONSULT PHARMACY - POTASSIUM & MAGNESIUM XX SCH (06:00)
[2025-07-13] MEDS ORDERED: XOPENEX 1.25 MG/3 ML NEBULE NEB SCH (06:15)
[2025-07-13 07:45] VITALS: BP 143/89; RESP 19; TEMP 97.5
[2025-07-13] MEDS: K-DUR TAB 20 MEQ PO SCH (08:04)
[2025-07-13] MEDS ORDERED: PHARMACY CONSULT XX SCH (09:00)
[2025-07-13] MEDS: XOPENEX 1.25 MG/3 ML NEBULE NEB PRN (09:08)
[2025-07-13 09:42] VITALS: PULSE 87; O2SAT 95
[2025-07-13] MEDS: LOVENOX INJ 40 MG SYR SC SCH (09:50)
--- NOTE | 2025-07-13 11:24 | PCM.DCPLAN ---
DISCHARGE SUMMARY Admission Date Date of Admission: 07/11/25 Discharge Date Discharge Date: 07/13/25 Admission Diagnoses (1) Right-sided chest wall pain: Status: Acute (2) Volume overload: Status: Acute (3) Simple chronic bronchitis: Status: Acute (4) Essential (primary) hypertension: Status: Acute Discharge Medications Discharge Medications: Prescriptions: Hospital Course Vital Signs: Vital Signs Temperature 97.8 F Temperature 97.5 F Pulse Rate [Radial] 68 Pulse Rate [Radial] 66 Respiratory Rate 20 Respiratory Rate 20 Blood Pressure [Right Arm] 139/74 Blood Pressure [Right Arm] 153/70 O2 Sat by Pulse Oximetry 94 O2 Sat by Pulse Oximetry 93 Latest Lab Results: Laboratory Last Values WBC 13.7 X10^3/uL (3.6-10.0) H 07/13/25 04:09 RBC 4.80 X10^6/uL (4.7-6.0) 07/13/25 04:09 Hgb 14.3 g/dL (13.5-18.0) 07/13/25 04:09 Hct 41.4 % (42.0-54.0) L 07/13/25 04:09 MCV 86.4 fL (80.0-100.0) 07/13/25 04:09 MCH 29.8 pg (27.0-34.0) 07/13/25 04:09 MCHC 34.5 g/dL (33.0-35.0) 07/13/25 04:09 RDW 14.4 % (11.6-16.5) 07/13/25 04:09 Plt Count 428 X10^3/uL (150.0-450.0) 07/13/25 04:09 Plt Count Comment Adequate (ADEQUATE) 07/11/25 11:27 MPV 7.7 fL (7.4-11.0) 07/13/25 04:09 Neut % (Auto) 83.1 % (42.0-75.0) H 07/13/25 04:09 Lymph % (Auto) 9.9 % (21.0-51.0) L 07/13/25 04:09 [place] % (Auto) 6.4 % (0.0-13.0) 07/13/25 04:09 Eos % (Auto) 0.0 % (0.9-2.9) L 07/13/25 04:09 Baso % (Auto) 0.6 % (0.2-1.0) 07/13/25 04:09 Neut # (Auto) 11.4 x10^3/uL (2.2-4.8) H 07/13/25 04:09 Lymph # (Auto) 1.4 X10^3/uL (1.3-2.9) 07/13/25 04:09 [place] # (Auto) 0.9 x10^3/uL (0.3-0.8) H 07/13/25 04:09 Eos # (Auto) 0.0 x10^3/uL (0.0-0.2) 07/13/25 04:09 Baso # (Auto) 0.1 X10^3/uL (0.0-0.1) 07/13/25 04:09 Absolute Nucleated RBC 0.1 /100WBC 07/13/25 04:09 Total Counted 100 07/11/25 11:27 Neutrophils % (Manual) 64 % (39-76) 07/11/25 11:27 Lymphocytes % (Manual) 25 % (13-43) 07/11/25 11:27 Monocytes % (Manual) 8 % (4-9) 07/11/25 11:27 Eosinophils % (Manual) 3 % (0-6) 07/11/25 11:27 Plt Morphology Comment Normal (NORMAL) 07/11/25 11:27 RBC Morphology Normal (NORMAL) 07/11/25 11:27 D-Dimer 1.60 ug/ml (0.0-0.57) H 07/11/25 11:27 Sample Site Rrad 07/11/25 11:15 ABG pH 7.450 (7.35-7.45) 07/11/25 11:15 ABG pCO2 42.0 mmHg (35.0-45.0) 07/11/25 11:15 ABG pO2 56.0 mmHg (80.0-100.0) L 07/11/25 11:15 ABG HCO3 29.2 mmol/L (22-26) H 07/11/25 11:15 ABG O2 Saturation 90.0 % (90-100) 07/11/25 11:15 ABG Base Excess 4.7 mmol/L (-2.0-2.0) H 07/11/25 11:15 Alan Test Pos 07/11/25 11:15 A-a Gradient 41.0 mmHg 07/11/25 11:15 FiO2 21.0 07/11/25 11:15 Blood Gas Comments Zi well ms 07/11/25 11:15 Sodium 139 mmol/L (136-145) 07/13/25 04:09 Corrected Sodium 140 mmol/L (136-145) 07/13/25 04:09 Potassium 3.2 mmol/L (3.5-5.1) L 07/13/25 04:09 Chloride 95 mmol/L (98-107) L 07/13/25 04:09 Carbon Dioxide 36.9 mmol/L (21-32) H 07/13/25 04:09 BUN 24 mg/dL (7-18) H 07/13/25 04:09 Creatinine 1.10 mg/dL (0.70-1.30) 07/13/25 04:09 Est GFR (MDRD) Af Amer > 60 (>60) 07/13/25 04:09 Est GFR (MDRD) Non-Af > 60 (>60) 07/13/25 04:09 Glucose 130 mg/dL (65-99) H 07/13/25 04:09 Uric Acid 6.9 mg/dL (3.5-7.2) 07/12/25 04:40 Calcium 8.8 mg/dL (8.5-10.1) 07/13/25 04:09 Corrected Calcium TNP 07/13/25 04:09 Magnesium 2.0 mg/dL (2.0-2.9) 07/13/25 04:09 Total Bilirubin 0.50 mg/dL (0.2-1.0) 07/13/25 04:09 AST 12 Units/L (15-37) L 07/13/25 04:09 ALT 13 Units/L (12-78) 07/13/25 04:09 Alkaline Phosphatase 72 Units/L (46-116) 07/13/25 04:09 Creatine Kinase 33 Units/L (39-308) L 07/11/25 23:05 Troponin I High Sens 6.8 ng/L (4.0-60.0) 07/11/25 23:05 B-Natriuretic Peptide 207 pg/mL (0-79) H 07/12/25 04:40 Total Protein 7.4 g/dL (6.4-8.2) 07/13/25 04:09 Albumin 3.5 g/dL (3.4-5.0) 07/13/25 04:09 Globulin 3.9 g/dL (2.5-4.5) 07/13/25 04:09 Albumin/Globulin Ratio 0.9 Ratio (1.1-2.1) L 07/13/25 04:09 Amylase 50 Units/L (25-115) 07/11/25 11:27 Lipase 19 Units/L (16-77) 07/11/25 11:27 Specimen Type Clean catch urine 07/11/25 13:26 Urine Color Pale yellow (YELLOW) 07/11/25 13:26 Urine Appearance Clear (CLEAR) 07/11/25 13:26 Urine pH 6.0 (5.0 - 8.0) 07/11/25 13:26 Ur Specific [place] 1.020 (1.000-1.030) 07/11/25 13:26 Urine Protein Negative (NEGATIVE) 07/11/25 13:26 Urine Glucose (UA) Negative (NEGATIVE) 07/11/25 13:26 Urine Ketones Negative (NEGATIVE) 07/11/25 13:26 Urine Blood Negative (NEGATIVE) 07/11/25 13:26 Urine Nitrite Negative (NEGATIVE) 07/11/25 13:26 Urine Bilirubin Negative (NEGATIVE) 07/11/25 13:26 Urine Urobilinogen Normal (NORMAL) 07/11/25 13:26 Ur Leukocyte Esterase Negative (NEGATIVE) 07/11/25 13:26 Hospital Course: Patient responded well to diuresis and pain control measures. After discussion with patient and daughter, he was And an additional night to make sure that he remained stable. He was encouraged to use his O2 at home, watch his blood pressure closely, and follow-up with his PCP. Already had her follow-up scheduled for later today. Discharged home in improved condition and discussions about possible hospice care given his diagnosis of lymphoma.
== END 2025-07-13 10:25 | disposition hospice, home (50) ==
LOC: ER 11:04 → MED/SURG 11:04
PROVIDERS: ADMIT Family Medicine; ATTEND Family Medicine
DX: R94.31 Abnormal electrocardiogram [ECG] [EKG]; Z86.79 Personal history of other diseases of the circulatory system; R00.1 Bradycardia, unspecified; Z59.86 Financial insecurity; Y92.89 Other specified places as the place of occurrence of the external cause; R07.81 Pleurodynia; E83.42 Hypomagnesemia; W10.8XXA Fall (on) (from) other stairs and steps, initial encounter; R06.02 Shortness of breath; I10 Essential (primary) hypertension; E87.79 Other fluid overload; R07.89 Other chest pain; J41.0 Simple chronic bronchitis; R79.1 Abnormal coagulation profile; R26.89 Other abnormalities of gait and mobility; Z72.0 Tobacco use